=== PATIENT | female | born 1960 | race Two or more races ===

== ENCOUNTER 2024-02-05 00:35 | Inpatient (IN) | payer MEDICAID, OTHER ==
[2024-02-05] VITALS (7 sets, daily range): BP systolic 105–143; BP diastolic 48–63; PULSE 43–70; RESP 14–20; TEMP 98.2–98.3; O2SAT 95–98
[~2024-02-05] VITALS: Ht 162.6 cm; Wt 61.3 kg
[2024-02-05] MEDS: ONDANSETRON HCL 4 MG/2 ML VIAL IV ONE (01:15)
[2024-02-05 01:20] LABS: Basophils # (auto) 0 10 ^3/uL (0-0.2); Basophils % (auto) 0.4 % (0.0-2.0); Eosinophils # (auto) 0.2 10 ^3/uL (0-0.8); Eosinophils % (auto) 1.7 % (0.0-7.0); Hematocrit 43.3 % (36.0-46.0); Hemoglobin 14.7 g/dL (12.2-16.2); Lymphocytes # (auto) 3.8 10 ^3/uL (0.4-5.4); Lymphocytes % (auto) 42.2 % (10.0-50.0); Mean Corpuscular Hemoglobin 30.2 pg (28.0-32.0); Mean Corpuscular Hgb Conc. 33.9 g/dL (32.0-36.0); Mean Corpuscular Volume 89.2 fL (80.0-100.0); Monocytes # (auto) 0.5 10 ^3/uL (0-1.3); Neutrophils # (auto) 4.5 10 ^3/uL (1.6-8.6); Neutrophils % (auto) 49.7 % (37.0-80.0); Platelet Count (auto) 224 10^3/uL (140-450); Red Blood Cells 4.86 10^6/uL (4.0-5.20); Red Cell Distribution Width 14.4 % (11.8-14.3); White Blood Cell 9.1 10^3/uL (4.4-10.8)
[2024-02-05 01:33] LABS: Chloride 112 mmol/L (98-107); Potassium 2.9 mmol/L (3.5-5.1); Sodium 144 mmol/L (136-145)
[2024-02-05 01:34] LABS: Anion Gap 9 (5-15); Calcium 10.5 mg/dL (8.7-10.4); Carbon Dioxide 23 mmol/L (20-31)
[2024-02-05 01:39] LABS: BUN/Creatinine Ratio 14.5 (10.0-20.0); Blood Urea Nitrogen 10 mg/dL (9-23); Glucose 58 mg/dL (74-106)
[2024-02-05 01:56] LABS: Urine Bacteria FEW /hpf (None Seen); Urine Blood 2+ /uL (Negative); Urine Budding Yeast FEW /hpf (None Seen); Urine Clarity Turbid (Clear); Urine Mucus FEW (None Seen); Urine Protein, UAD 1+ (Negative); Urine Specific Gravity 1.023 (1.001-1.035); Urine Urobilinogen Normal (Negative); Urine WBC 246 /hpf (0 - 5)
[2024-02-05] MEDS: CEFEPIME 2GM/50ML NS 50 ML IV ONE (02:00)
[2024-02-05] MEDS: SODIUM CHLORIDE 0.9% 1,000 ML IV ONE (02:00)
[2024-02-05 02:03] LABS: Urine Color YELLOW (Yellow)
[2024-02-05] MEDS ORDERED: ONDANSETRON HCL 4 MG/2 ML VIAL IV PRN (03:45)
[2024-02-05] MEDS ORDERED: MORPHINE SULFATE INJ 2 MG/ml SYRG IV PRN (03:45)
[2024-02-05] MEDS ORDERED: NITROGLYCERIN 0.4 MG SL TAB SL PRN (03:45)
[2024-02-05] MEDS: POTASSIUM EFFERVESENT TAB 25 MEQ PO ONE (04:29)
[2024-02-05] MEDS: SODIUM CHLORIDE 0.9% 1,000 ML IV SCH (04:29)
[2024-02-05] MEDS ORDERED: DEXTROSE (50%) 50ML SYRG IV PRN (05:15)
[2024-02-05] MEDS: HYDROcodone-ACET 5/325MG TAB PO PRN (06:48)
[2024-02-05] MEDS: InsuLIN REG 1unit/0.01ml Soln (100units/ml) SC SCH (06:59)
[2024-02-05] MEDS: ACCU-CHEK COMFORT CURVE STRIP VI SCH (07:00)
[2024-02-05] MEDS ORDERED: POTASSIUM CHL 20MEQ/100ML 100 ML IV SCH (08:00)
[2024-02-05] MEDS: cefTRIAXone 1GM/50ML D5W 50 ML IV SCH (09:58)
[2024-02-05] MEDS: ENOXAPARIN SOD 40 MG/0.4 ML SYRINGE SC SCH (10:00)
[2024-02-05] MEDS: KETOROLAC TROMETH 30 MG/ML 1ML VIAL IV ONE (12:23)
[2024-02-05] MEDS: ACETAMINOPHEN 325 MG TAB PO ONE (12:23)
[2024-02-06] VITALS (7 sets, daily range): BP systolic 127–158; BP diastolic 44–57; PULSE 49–67; RESP 17–20; TEMP 97.8–98.5; O2SAT 95–97
[2024-02-06 06:03] LABS: Basophils # (auto) 0 10 ^3/uL (0-0.2); Basophils % (auto) 0.4 % (0.0-2.0); Eosinophils # (auto) 0.2 10 ^3/uL (0-0.8); Eosinophils % (auto) 3.4 % (0.0-7.0); Hematocrit 36.4 % (36.0-46.0); Hemoglobin 12.4 g/dL (12.2-16.2); Lymphocytes # (auto) 2.8 10 ^3/uL (0.4-5.4); Lymphocytes % (auto) 46.4 % (10.0-50.0); Mean Corpuscular Hemoglobin 30.5 pg (28.0-32.0); Mean Corpuscular Volume 89.5 fL (80.0-100.0); Monocytes # (auto) 0.3 10 ^3/uL (0-1.3); Monocytes % (auto) 5.6 % (0.0-12.0); Neutrophils # (auto) 2.6 10 ^3/uL (1.6-8.6); Neutrophils % (auto) 44.2 % (37.0-80.0); Platelet Count (auto) 179 10^3/uL (140-450); Red Blood Cells 4.06 10^6/uL (4.0-5.20); Red Cell Distribution Width 14.4 % (11.8-14.3)
[2024-02-06 06:22] LABS: Alanine Aminotransferase 19 U/L (7-40); Alkaline Phosphatase 60 U/L (46-116); Anion Gap 6 (5-15); BUN/Creatinine Ratio 8.5 (10.0-20.0); Blood Urea Nitrogen 6 mg/dL (9-23); Calcium 9.3 mg/dL (8.7-10.4); Carbon Dioxide 25 mmol/L (20-31); Chloride 111 mmol/L (98-107); Glucose 136 mg/dL (74-106); Potassium 4.5 mmol/L (3.5-5.1); Sodium 142 mmol/L (136-145)
[2024-02-06 06:23] LABS: Albumin 3.7 g/dL (3.2-4.8); Aspartate Aminotransferase 17 U/L (13-40); Bilirubin, Total 0.3 mg/dL (0.2-1.0); Total Protein 6.2 g/dL (5.7-8.2)
[2024-02-06] MEDS: amLODIPine BESYLATE 5 MG TAB PO STA (11:07)
[2024-02-06] MEDS: ACETAMINOPHEN 325 MG TAB PO PRN (19:53)
[2024-02-07 01:00] VITALS: BP 146/50; PULSE 56; RESP 18; TEMP 98.3; O2SAT 96
[2024-02-07 05:00] VITALS: BP 128/50; PULSE 55; RESP 18; TEMP 98.8; O2SAT 97
[2024-02-07 06:29] LABS: Anion Gap 10 (5-15); Basophils # (auto) 0 10 ^3/uL (0-0.2); Basophils % (auto) 0.7 % (0.0-2.0); Carbon Dioxide 23 mmol/L (20-31); Chloride 109 mmol/L (98-107); Eosinophils # (auto) 0.2 10 ^3/uL (0-0.8); Lymphocytes # (auto) 2.3 10 ^3/uL (0.4-5.4); Lymphocytes % (auto) 42.4 % (10.0-50.0); Mean Corpuscular Hemoglobin 30.6 pg (28.0-32.0); Mean Corpuscular Hgb Conc. 34.3 g/dL (32.0-36.0); Mean Corpuscular Volume 89.4 fL (80.0-100.0); Monocytes # (auto) 0.3 10 ^3/uL (0-1.3); Monocytes % (auto) 5.8 % (0.0-12.0); Neutrophils # (auto) 2.6 10 ^3/uL (1.6-8.6); Neutrophils % (auto) 47.1 % (37.0-80.0); Nucleated Red Blood Cells % 0.3 %; Platelet Count (auto) 186 10^3/uL (140-450); Potassium 3.9 mmol/L (3.5-5.1); Red Blood Cells 4.25 10^6/uL (4.0-5.20); Red Cell Distribution Width 14.1 % (11.8-14.3); Sodium 142 mmol/L (136-145); White Blood Cell 5.5 10^3/uL (4.4-10.8)
[2024-02-07 06:30] LABS: Calcium 9.2 mg/dL (8.7-10.4)
[2024-02-07 06:34] LABS: Glucose 130 mg/dL (74-106)
[2024-02-07 06:37] LABS: BUN/Creatinine Ratio 7.9 (10.0-20.0); Blood Urea Nitrogen < 5 mg/dL (9-23)
[2024-02-07 08:00] VITALS: PULSE 50
[2024-02-07 08:58] VITALS: BP 151/57; PULSE 52; RESP 16; TEMP 98.2; O2SAT 96
[2024-02-07] MEDS: amLODIPine BESYLATE 5 MG TAB PO SCH (10:00)
[2024-02-07] MEDS ORDERED: BLOO1KIT60 XX (11:44)
[2024-02-07] MEDS ORDERED: LANC-347 XX (11:44)
[2024-02-07] MEDS ORDERED: INSLANTI SC (11:44)
[2024-02-07] MEDS ORDERED: NITR-52 PO (11:46)
[2024-02-07 13:00] VITALS: BP 107/53; PULSE 54; RESP 16; TEMP 97.9; O2SAT 96
== END 2024-02-07 15:50 | disposition home or self-care (01) | DRG 463 ==
LOC: ER 00:35 → TELE 03:44 → TELE-EAST 06:10
PROVIDERS: ADMIT Internal Medicine Geriatric Medicine; ATTEND Internal Medicine Geriatric Medicine
DX: N30.00 Acute cystitis without hematuria (principal); G92.8 Other toxic encephalopathy; T68.XXXA Hypothermia, initial encounter; E11.649 Type 2 diabetes mellitus with hypoglycemia without coma; E87.6 Hypokalemia; E55.9 Vitamin D deficiency, unspecified; Z79.4 Long term (current) use of insulin; X31.XXXA Exposure to excessive natural cold, initial encounter; Z79.899 Other long term (current) drug therapy
CPT/HCPCS: 36415; 71045; 74176; 80048; 80053; 81001; 82306; 82607; 82962; 83036; 83605; 83735; 84132; 84443; 85025; 87040; 87086; 87088; 87186; 93005; 99291; G0378; J0692; J1815; J1885

== ENCOUNTER 2024-02-21 08:55 | Inpatient (IN) | payer MEDICAID ==
[~2024-02-21] VITALS: Ht 147.3 cm; Wt 65.5 kg
[~2024-02-21 08:55] MED LIST: BLOO1KIT60 XX; INSLANTI SC; LANC-347 XX; NITR-52 PO
--- NOTE | 2024-02-21 10:03 | ED.PDOC ---
History of Present Illness HPI Comments 64Y F with PMHx DM, HTN, and cholecystectomy presents to ED for chief complaint dysuria x1day with dizziness and headache. Pt denies chest pain and SOB. No known allergies. Chief Complaint: Dizziness Time Seen by MD: 09:30 Primary Care Provider: unknown Reviewed Notes: Medications, Allergies Allergies: Coded Allergies: NO KNOWN ALLERGIES (Unverified , 02/05/24) Home Meds Active Scripts Nitrofurantoin (Nitrofurantoin) 100 Mg Cap, 100 MG PO BID for 5 Days, #10 CAP Prov:EFRAIN LOUIE RESIDENT 02/07/24 Insulin Glargine (Lantus) 100 Unit/Ml Inj, 15 UNIT SC QPM for 30 Days, #30 INJ Prov:EFRAIN LOUIE 02/07/24 Lancets (Freestyle Lancets) Lancets Mis, APPLIC XX BID, #60 60 LANCETS, 2 LANCETS EACH DAY Prov:EFRAIN LOUIE 02/07/24 Blood Glucose Monitoring Suppl (D-Care Glucometer Kit/Glu W/Device) 1 Kit Kit, KIT XX DAILY PRN, #1 1 Refill CHECK GLUCOSE TWICE A DAY Prov:EFRAIN LOUIE 02/07/24 Information Source: Patient Mode of Arrival: Wheelchair Severity: Mild Timing: Hours Duration: Since onset Past Medical History PAST MEDICAL HISTORY: DM, HTN Surgical History: Cholecystectomy 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 Family History Family History: Reviewed,noncontributory to illness Social History Smoker: Non-Smoker Alcohol: Denies ETOH Use Drugs: Denies Drug Use Lives In: Home Constitutional: denies: chills, diaphoresis, fatigue, fever, malaise, sweats, weakness, others EENTM: denies: blurred vision, double vision, ear bleeding, ear discharge, ear drainage, ear pain, ear ringing, eye pain, eye redness, hearing loss, mouth pain, mouth swelling, nasal discharge, nose bleeding, nose congestion, nose pain, photophobia, tearing, throat pain, throat swelling, voice changes, others Respiratory: denies: cough, hemoptysis, orthopnea, SOB at rest, shortness of breath, SOB with excertion, stridor, wheezing, others Cardiovascular: denies: chest pain, dizzy spells, diaphoresis, Dyspnea on exertion, edema, irregular heart beat, left arm pain, lightheadedness, palpitations, PND, syncope, others Gastrointestinal: denies: abdomen distended, abdominal pain, blood streaked bowels, constipated, diarrhea, dysphagia, difficulty swallowing, hematemesis, melena, nausea, poor appetite, poor fluid intake, rectal bleeding, rectal pain, vomiting, others Genitourinary: reports: dysuria; denies: abnormal vagina bleeding, burning, dyspareunia, flank pain, frequency, hematuria, incontinence, pain, , vagina discharge, urgency, others Neurological: reports: dizziness, headache; denies: fainting, left sided numbness, left sided weakness, numbness, paresthesia, pre-existing deficit, right sided numbness, right sided weakness, seizure, speech problems, tingling, tremors, weakness, others Musculoskeletal: denies: back pain, gout, joint pain, joint swelling, muscle pain, muscle stiffness, neck pain, others Integumetry: denies: bruises, change in color, change in hair/nails, dryness, laceration, lesions, lumps, rash, wounds, others Allergic/Immunocompromised: denies: Difficulty Healing, Frequent Infections, Hives, Itching, others Hematologic/Lymphatic: denies: anemia, blood clots, easy bleeding, easy bruising, swollen glands, others Endocrine: denies: excessive hunger, excessive sweating, excessive thirst, excessive urination, flushing, intolerance to cold, intolerance to heat, unexplained weight gain, unexplained weight loss, others Psychiatric: denies: anxiety, bipolar disorder, depression, hopeless, panic disorder, schizophrenia, sleepless, suicidal, others All Other Systems: Reviewed and Negative Physical Exam General Appearance: Moderate Distress, Normal HEENT: Normal ENT Inspection, Pharynx Normal, TMs Normal Neck: Full Range of Motion, Non-Tender, Normal, Normal Inspection Respiratory: Chest Non-Tender, Lungs Clear, No Accessory Muscle Use, No Respiratory Distress, Normal Breath Sounds Cardiovascular: No Edema, No JVD, No Murmur, No Gallop, Normal Peripheral Pulses, Regular Rate/Rhythm Breast Exam: Deferred Gastrointestinal: No Organomegaly, Non Tender, No Pulsatile Mass, Normal Bowel Sounds, Soft Genitalia: Deferred Pelvic: Deferred Rectal: Deferred Extremities: No calf tenderness, Normal capillary refill, Normal inspection, Normal range of motion, Non-tender, No pedal edema Musculoskeletal : Apperance: Normal Neurologic: Alert, top distribution executive II-XII nml as Tested, No Motor Deficits, Normal Affect, Normal Mood, No Sensory Deficits Cerebellar Function: NOT DONE Reflexes: NOT DONE Skin: Dry, Normal Color, Warm Peripheral Pulses: 3+ Radial (R), 3+ Radial (L) Lymphatic: No Adenopathy Was a procedure done? Was a procedure done?: No Differential Dx Considerations may include: Autonomic disorder Electrolyte imbalance X-Ray, Labs, Meds, VS Vital Signs Date Time Temp Pulse Resp B/P (MAP) Pulse Ox O2 Delivery O2 Flow Rate FiO2 02/21/24 10:33 52 16 96 Room Air 02/21/24 10:33 97.8 52 16 149/47 (81) 96 97.8 02/21/24 09:14 51 02/21/24 09:14 98.2 59 19 152/62 (92) 99 Lab Test 02/21/24 10:29 02/21/24 09:52 Range/Units Urine Color Colorless Yellow Urine Clarity Clear Clear Urine pH 6.0 5.0-9.0 Urine Specific [place] 1.013 1.001-1.035 Urine Protein Negative Negative Urine Ketones Negative Negative Urine Blood Negative Negative /uL Urine Nitrite Negative Negative Urine Bilirubin Negative Negative Urine Urobilinogen Normal Negative mg/dL Urine Leukocyte Esterase 3+ Negative /uL Urine RBC 3 0 - 4 /hpf Urine WBC 14 0 - 5 /hpf Urine Squamous Epithelial Cells Few <5 /hpf Urine Bacteria None seen None Seen /hpf Urine Glucose 2+ H Normal mg/dL White Blood Count 5.4 4.4-10.8 10^3/uL Red Blood Count 4.38 4.0-5.20 10^6/uL Hemoglobin 13.1 12.2-16.2 g/dL Hematocrit 38.9 36.0-46.0 % Mean Corpuscular Volume 88.8 80.0-100.0 fL Mean Corpuscular Hemoglobin 30.0 28.0-32.0 pg Mean Corpuscular Hemoglobin Concent 33.8 32.0-36.0 g/dL Red Cell Distribution Width 14.3 11.8-14.3 % Platelet Count 221 140-450 10^3/uL Mean Platelet Volume 7.8 6.9-10.8 fL Neutrophils (%) (Auto) 44.6 37.0-80.0 % Lymphocytes (%) (Auto) 45.5 10.0-50.0 % Monocytes (%) (Auto) 6.7 0.0-12.0 % Eosinophils (%) (Auto) 2.6 0.0-7.0 % Basophils (%) (Auto) 0.6 0.0-2.0 % Neutrophils # (Auto) 2.4 1.6-8.6 10 ^3/uL Lymphocytes # (Auto) 2.5 0.4-5.4 10 ^3/uL Monocytes # (Auto) 0.4 0-1.3 10 ^3/uL Eosinophils # (Auto) 0.1 0-0.8 10 ^3/uL Basophils # (Auto) 0 0-0.2 10 ^3/uL Nucleated Red Blood Cells 0.0 % Sodium Level 142 136-145 mmol/L Potassium Level 4.0 3.5-5.1 mmol/L Chloride Level 110 H 98-107 mmol/L Carbon Dioxide Level 25 20-31 mmol/L Anion Gap 7 5-15 Blood Urea Nitrogen 10 9-23 mg/dL Creatinine 0.91 0.550-1.02 mg/dL Glomerular Filtration Rate Calc 70 >90 mL/min BUN/Creatinine Ratio 11.0 10.0-20.0 Serum Glucose 231 H 74-106 mg/dL Calcium Level 9.8 8.7-10.4 mg/dL Troponin I High Sensitivity 4 </=34 ng/L [place] [id number] Ph: [phone] DIAGNOSTIC IMAGING Diagnostic Imaging Report : [id number] Signed PATIENT: ALEX EISENBERG MA CONCEPCIOACCT: [id number] UNIT: [id number] : 1960 LOC: ER ROOM / BED: / AGE / SEX: 64 / F ADM STATUS: REG ER SERVICE 1043 ORDERING PHYSICIAN: IRA HOUSTON MD PROCEDURE(s): HWOCT - HEAD WITHOUT CONTRAST REASON: dizzy ORDER NUMBER(s): [id number], ACCESSION NUMBER(s): [id number] EXAM: CT HEAD WITHOUT CONTRAST INDICATION: dizzy TECHNIQUE: CT of the head without intravenous contrast. Radiation dose : Head: CT Dose: CTDI volume is 54 mGy. Dose-length product is 956.35 mGy*cm The dose indicators for CT are the volume computed tomography (CT) dose index (CTDIvol) and the dose length product (DLP), and are measured in units of mGy and mGy-cm, respectively. These indicators are not patient dose, but values generated from the CT scanner acquisition factors. The report includes radiation exposure data for exposures received during this examination. COMPARISON: None FINDINGS: There is no evidence of acute intracranial hemorrhage, extra-axial collection, mass effect, midline shift, herniation or hydrocephalus. There is a calcification in the left high frontal cortex. The ventricles, sulci and cisterns are age appropriate. The moses-white differentiation is intact. The visualized paranasal sinuses and mastoid air cells are clear. The surrounding soft tissues and osseous structures are unremarkable. IMPRESSION: 1. No acute intracranial abnormality. Radiation optimization: All CT scans at this facility use at least one of these dose optimization techniques: Automated exposure control mA and/or kV adjustment per patient size (includes targeted exams where dose is matched to clinical indication) or iterative reconstruction. HS:Y ATED BY: NIKOLAI MALAGON MD DICTATED DATE/TIME: 02/21/24 111 SIGNED BY: NIKOLAI MALAGON MD SIGNED DATE/TIME: 02/21/24 111 CC: Patient alert. Complaining of dysuria headache dizziness. Vitals stable. Answering all questions. Blood sugar elevated. Establish intravenous access. Was given fluids. CT scan of the head. WBC within normal limits. Hemoglobin within normal limits. Blood pressure elevated. Was given clonidine. EKG reviewed does not show any acute changes. Reviewed her history. Explained to the family. Continue scow hand. Time of 1ST Reevaluation: 10:00 Reevaluation 1ST: Unchanged Patient Education/Counseling: Diagnosis, Treatment Family Education/Counseling: Diagnosis, Treatment Departure 1 Departure Time of Disposition: 10:42 Impression: Primary Impression: Autonomic disorder Additional Impressions: Hyperglycemia HTN (hypertension) Qualified Codes: I10 - Essential (primary) hypertension Disposition: ADMITTED INPATIENT Admit to: Med Surg Condition: Guarded Critical Care Note Critical Care Time?: No Stability Stability form required: No Heart Score Heart Score: Heart Score Response (Comments) Value History Slightly Suspicious 0 EKG Normal 0 Age >65 2 Risk Factors >3 or Hx ASHD 2 Troponin Normal limit 0 Total 4 I personally scribed for IRA HOUSTON MD ([email or web address]) on 02/21/24 at 10:03. Electronically submitted by Aniya Lockwood ([employer]). I personally scribed for IRA HOUSTON MD ([email or web address]) on 02/21/24 at 11:24. Electronically submitted by Aniya Lockwood ([employer]). IRA HOUSTON MD Feb 21, 2024 10:03
[2024-02-21 10:17] LABS: Basophils # (auto) 0 10 ^3/uL (0-0.2); Basophils % (auto) 0.6 % (0.0-2.0); Eosinophils # (auto) 0.1 10 ^3/uL (0-0.8); Eosinophils % (auto) 2.6 % (0.0-7.0); Hematocrit 38.9 % (36.0-46.0); Hemoglobin 13.1 g/dL (12.2-16.2); Lymphocytes # (auto) 2.5 10 ^3/uL (0.4-5.4); Lymphocytes % (auto) 45.5 % (10.0-50.0); Mean Corpuscular Hgb Conc. 33.8 g/dL (32.0-36.0); Mean Corpuscular Volume 88.8 fL (80.0-100.0); Monocytes # (auto) 0.4 10 ^3/uL (0-1.3); Monocytes % (auto) 6.7 % (0.0-12.0); Neutrophils # (auto) 2.4 10 ^3/uL (1.6-8.6); Neutrophils % (auto) 44.6 % (37.0-80.0); Platelet Count (auto) 221 10^3/uL (140-450); Red Blood Cells 4.38 10^6/uL (4.0-5.20); Red Cell Distribution Width 14.3 % (11.8-14.3); White Blood Cell 5.4 10^3/uL (4.4-10.8)
[2024-02-21 10:24] LABS: Chloride 110 mmol/L (98-107); Sodium 142 mmol/L (136-145)
[2024-02-21 10:25] LABS: Anion Gap 7 (5-15); Carbon Dioxide 25 mmol/L (20-31)
[2024-02-21 10:26] LABS: Calcium 9.8 mg/dL (8.7-10.4)
[2024-02-21 10:31] LABS: Blood Urea Nitrogen 10 mg/dL (9-23); Glucose 231 mg/dL (74-106)
[2024-02-21 10:54] LABS: Urine Bacteria None Seen /hpf (None Seen)
[2024-02-21 11:11] LABS: Urine Blood Negative /uL (Negative); Urine Clarity Clear (Clear); Urine Color Colorless (Yellow); Urine Protein, UAD Negative (Negative); Urine Specific Gravity 1.013 (1.001-1.035); Urine Urobilinogen Normal (Negative); Urine WBC 14 /hpf (0 - 5)
[2024-02-21] MEDS: cloNIDine HCL 0.1 MG TAB PO ONE (11:13)
[2024-02-21] MEDS: SODIUM CHLORIDE 0.9% 1,000 ML IV ONE (11:13)
--- NOTE | 2024-02-21 11:18 | DVH ---
EXAM: CT HEAD WITHOUT CONTRAST INDICATION: dizzy TECHNIQUE: CT of the head without intravenous contrast. Radiation dose : Head: CT Dose: CTDI volume is 54 mGy. Dose-length product is 956.35 mGy*cm The dose indicators for CT are the volume computed tomography (CT) dose index (CTDIvol) and the dose length product (DLP), and are measured in units of mGy and mGy-cm, respectively. These indicators are not patient dose, but values generated from the CT scanner acquisition factors. The report includes radiation exposure data for exposures received during this examination. COMPARISON: None FINDINGS: There is no evidence of acute intracranial hemorrhage, extra-axial collection, mass effect, midline s hift, herniation or hydrocephalus. There is a calcification in the left high frontal cortex. The ventricles, sulci and cisterns are age appropriate. The moses-white differentiation is intact. The visualized paranasal sinuses and mastoid air cells are clear. The surrounding soft tissues and osseous structures are unremarkable. IMPRESSION: 1. No acute intracranial abnormality. Radiation optimization: All CT scans at this facility use at least one of these dose optimization cruz hniques: Automated exposure control mA and/or kV adjustment per patient size (includes targeted exams where dose is matched to clinical indication) or iterative reconstruction. HS:Y
[2024-02-21 12:10] VITALS: PULSE 52; RESP 16; O2SAT 98
[2024-02-21 13:00] VITALS: BP 137/47; PULSE 48; RESP 16; TEMP 97.8; O2SAT 98
[2024-02-21] MEDS ORDERED: cloNIDine HCL 0.1 MG TAB PO PRN (14:00)
[2024-02-21] MEDS ORDERED: ACETAMINOPHEN 325 MG TAB PO PRN (14:00)
[2024-02-21] MEDS ORDERED: HYDROcodone-ACET 5/325MG TAB PO PRN (14:00)
[2024-02-21] MEDS ORDERED: DEXTROSE (50%) 50ML SYRG IV PRN (14:00)
[2024-02-21] MEDS ORDERED: DOCUSATE SOD 100 MG CAP PO PRN (14:00)
[2024-02-21] MEDS ORDERED: ONDANSETRON HCL 4 MG/2 ML VIAL IV PRN (14:00)
[2024-02-21 15:00] VITALS: BP 134/54; PULSE 52; RESP 17; TEMP 98.1; O2SAT 97
[2024-02-21] MEDS: cefTRIAXone 1GM/50ML D5W 50 ML IV ONE (16:11)
[2024-02-21] MEDS: SODIUM CHLOR 0.9% PF (SALINE LOCK) 10ML VIAL/SYR IV SCH (16:12)
--- NOTE | 2024-02-21 16:33 | DVHHP2 ---
History of Present Illness Reason for Visit: Dizziness History of Present Illness The patient is a 64-year-old female with past medical history of diabetes mellitus and hypertension who presented to [facility] ED with complaint of dysuria. Patient reports symptoms progressively get worse with dizziness, headache, getting worse today that prompted this visit. Patient was seen and evaluated in the ED, laboratory data shows WBC 5.4, platelets 221, sodium 142, potassium 4.0, BUN 10, creatinine 0.91, glucose 231, troponin four, blood pressure 145/45, heart rate 52, temperature 97.9 F, O2 saturation 99% on room air. Head CT showed no acute intracranial abnormality. Urinalysis positive for urinary tract infection. Patient was started on IV antibiotic regimen Rocephin, please see medication orders section in the computer. On my assessment, patient denied chest pain, no headache, no dizziness, no diaphoresis, no shortness of breath, no abdominal pain, no nausea, no vomiting, no fever, no chills. Patient was admitted for further evaluation and medical management. Past Medical History DM, HTN Past Surgical History Cholecystectomy Family History Reviewed, noncontributory to the management of this case. Past Social History The patient lives at home, denies smoking, alcohol or illicit drugs abuse. Review of Systems Constitutional: No: Fever, Chills, Sweats, Weakness, Malaise, Other Eyes: No: Pain, Vision change, Conjunctivae inflammation, Eyelid inflammation, Other, Redness ENT: No: Ear pain, Ear discharge, Nose pain, Nose discharge, Nose congestion, Mouth pain, Mouth swelling, Throat pain, Throat swelling, Other Respiratory: No: Cough, Dry, Shortness of breath, SOB with excertion, Wheezing, Hemoptysis, Pleuritic Pain, Sputum, Wheezing, Other Gastrointestinal: No: Nausea, Vomiting, Abdominal Pain, Diarrhea, Constipation, Melena, Hematochezia, Other Genitourinary: Dysuria; No Frequency, No Incontinence, No Hematuria, No Retention, No Other Musculoskeletal: No: other, neck pain, shoulder pain, arm pain, back pain, hand pain, leg pain, foot pain Skin: No: Rash, Lesions, Jaundice, Bruising, Other Neurological: Other (Dizziness, headache.); No: Weakness, Numbness, Incoordina tion, Change in speech, Confusion, Seizures Allergies: Coded Allergies: NO KNOWN ALLERGIES (Unverified , 02/05/24) Medications Current Medications Medications Dose Ordered Sig/Michael Route Start Time Stop Time Status Last Admin Dose Admin Ceftriaxone Sodium 50 ml @ 100 mls/hr DAILY@09 IV 02/22/24 09:00 Clonidine HCl 0.1 mg Q4HP PRN PO 02/21/24 14:00 Diagnostic Test (Pha) 1 strip ACHS 02/21/24 17:00 Insulin Human Regular HS SC 02/21/24 22:00 Insulin Human Regular AC SC 02/21/24 17:00 Dextrose 50 ml UD PRN IV 02/21/24 14:00 Sodium Chloride 10 ml Q8HR IV 02/21/24 14:00 02/21/24 16:12 10 ML Acetaminophen/ Hydrocodone Bitart 1 tab Q4HP PRN PO 02/21/24 14:00 Ondansetron HCl 4 mg Q4HP PRN IV 02/21/24 14:00 Docusate Sodium 100 mg BIDPRN PRN PO 02/21/24 14:00 Acetaminophen 650 mg Q6HP PRN PO 02/21/24 14:00 Exam Vital Signs Vital Signs Date Time Temp Pulse Resp B/P (MAP) Pulse Ox O2 Delivery O2 Flow Rate FiO2 02/21/24 13:00 97.8 48 16 137/47 (77) 98 97.8 02/21/24 12:10 Room Air* 0 21 General Appearance: Alert, Oriented X3, Cooperative, No acute distress HEENT: Atraumatic, PERRLA, EOMI, Mucous membr. moist/pink Respiratory: Clear to auscultation, Normal air movement Cardiovascular: Regular rate, Normal S1, Normal S2, No murmurs Abdominal: Normal bowel sounds, Soft, No tenderness, No hepatospenomegaly, No masses Extremities: No clubbing, No cyanosis, No edema, Normal pulses, No tenderness/swelling Skin: No rashes, No breakdown, No significant lesion Neuro: Normal gait, Normal speech, Strength at 5/5 X4 ext, Normal tone, Sen sation intact, Cranial nerves 3-12 NL, Reflexes 2+ Psych/Mental Status: Mental status NL, Mood NL Labs/Xrays Labs Test 02/21/24 10:29 02/21/24 09:52 Range/Units Urine Color Colorless Yellow Urine Clarity Clear Clear Urine pH 6.0 5.0-9.0 Urine Specific [place] 1.013 1.001-1.035 Urine Protein Negative Negative Urine Ketones Negative Negative Urine Blood Negative Negative /uL Urine Nitrite Negative Negative Urine Bilirubin Negative Negative Urine Urobilinogen Normal Negative mg/dL Urine Leukocyte Esterase 3+ Negative /uL Urine RBC 3 0 - 4 /hpf Urine WBC 14 0 - 5 /hpf Urine Squamous Epithelial Cells Few <5 /hpf Urine Bacteria None seen None Seen /hpf Urine Glucose 2+ H Normal mg/dL White Blood Count 5.4 4.4-10.8 10^3/uL Red Blood Count 4.38 4.0-5.20 10^6/uL Hemoglobin 13.1 12.2-16.2 g/dL Hematocrit 38.9 36.0-46.0 % Mean Corpuscular Volume 88.8 80.0-100.0 fL Mean Corpuscular Hemoglobin 30.0 28.0-32.0 pg Mean Corpuscular Hemoglobin Concent 33.8 32.0-36.0 g/dL Red Cell Distribution Width 14.3 11.8-14.3 % Platelet Count 221 140-450 10^3/uL Mean Platelet Volume 7.8 6.9-10.8 fL Neutrophils (%) (Auto) 44.6 37.0-80.0 % Lymphocytes (%) (Auto) 45.5 10.0-50.0 % Monocytes (%) (Auto) 6.7 0.0-12.0 % Eosinophils (%) (Auto) 2.6 0.0-7.0 % Basophils (%) (Auto) 0.6 0.0-2.0 % Neutrophils # (Auto) 2.4 1.6-8.6 10 ^3/uL Lymphocytes # (Auto) 2.5 0.4-5.4 10 ^3/uL Monocytes # (Auto) 0.4 0-1.3 10 ^3/uL Eosinophils # (Auto) 0.1 0-0.8 10 ^3/uL Basophils # (Auto) 0 0-0.2 10 ^3/uL Nucleated Red Blood Cells 0.0 % Sodium Level 142 136-145 mmol/L Potassium Level 4.0 3.5-5.1 mmol/L Chloride Level 110 H 98-107 mmol/L Carbon Dioxide Level 25 20-31 mmol/L Anion Gap 7 5-15 Blood Urea Nitrogen 10 9-23 mg/dL Creatinine 0.91 0.550-1.02 mg/dL Glomerular Filtration Rate Calc 70 >90 mL/min BUN/Creatinine Ratio 11.0 10.0-20.0 Serum Glucose 231 H 74-106 mg/dL Calcium Level 9.8 8.7-10.4 mg/dL Troponin I High Sensitivity 4 </=34 ng/L PATIENT: ALEX EISENBERG MA CONCEPCIOACCT: [id number] UNIT: [id number] : 1960 LOC: ER ROOM / BED: / AGE / SEX: 64 / F ADM STATUS: REG ER SERVICE 1043 ORDERING PHYSICIAN: IRA HOUSTON MD PROCEDURE(s): HWOCT - HEAD WITHOUT CONTRAST REASON: dizzy ORDER NUMBER(s): [id number], ACCESSION NUMBER(s): [id number] EXAM: CT HEAD WITHOUT CONTRAST INDICATION: dizzy TECHNIQUE: CT of the head without intravenous contrast. Radiation dose : Head: CT Dose: CTDI volume is 54 mGy. Dose-length product is 956.35 mGy*cm The dose indicators for CT are the volume computed tomography (CT) dose index (CTDIvol) and the dose length product (DLP), and are measured in units of mGy and mGy-cm, respectively. These indicators are not patient dose, but values generated from the CT scanner acquisition factors. The report includes radiation exposure data for exposures received during this examination. COMPARISON: None FINDINGS: There is no evidence of acute intracranial hemorrhage, extra-axial collection, mass effect, midline shift, herniation or hydrocephalus. There is a calcification in the left high frontal cortex. The ventricles, sulci and cisterns are age appropriate. The moses-white differentiation is intact. The visualized paranasal sinuses and mastoid air cells are clear. The surrounding soft tissues and osseous structures are unremarkable. IMPRESSION: 1. No acute intracranial abnormality. Assessment/Plan Assessment/Plan Dizziness HTN (hypertension) Urinary tract infection Diabetes mellitus with hyperglycemia Plan 1. Admit to telemetry unit 2. Breathing treatment 3. Pain control management 4. IV antibiotic management 5. Management of fluids and electrolytes 6. Consultation for hospitalist 7. Diagnostic test head CT 8. DVT prophylaxis on SCDs 9. Repeat labs CBC, CMP in a.m. 10. Home medication reviewed and reconciled 11. Continue with current medical management 12. Treatment plan discussed with patient and RN. Patient verbalized understanding. Plan discussed with: Patient, Other (RN) My Orders Orders - SANTOSH TREVINO DNP Procedure Category Date Status Time Urine Bacterial NA 02/21/24 In Process Culture 13:52 Ceftriaxone 1gm/50ml PHA 02/22/24 In Process D5w (Rocephin) 09:00 Clonidine Hcl Tablet PHA 02/21/24 In Process (Catapres Tablet) 14:00 Consistent DIET 02/21/24 Transmitted Carb(Ccho)Diabetes Dinner Glucose Blood PHA 02/21/24 In Process (Accu-Chek Comfort 17:00 Insulin R (Human) PHA 02/21/24 In Process (Insulin R) 22:00 Insulin R (Human) PHA 02/21/24 In Process (Insulin R) 17:00 Dextrose 50% Syringe PHA 02/21/24 In Process 14:00 Allergies ROSY 02/21/24 In Process 13:52 Code Status CODE 02/21/24 Transmitted 13:52 Sodium Chloride Lock PHA 02/21/24 In Process (Saline Lock Ns) 14:00 Oxygen Per Hour RT 02/21/24 Transmitted 13:52 Hydrocodone-Acet PHA 02/21/24 In Process 5/325mg Tab (Cary 14:00 Ondansetron Hcl PHA 02/21/24 In Process (Zofran) 14:00 Docusate Sodium PHA 02/21/24 In Process Capsule (Colace 14:00 Complete Blood Count LAB 02/22/24 Verified 04:00 Comprehensive LAB 02/22/24 Verified Metabolic Panel 04:00 Condition: Serious ROSY 02/21/24 In Process 13:52 Acetaminophen Tablet PHA 02/21/24 In Process (Tylenol Tablet) 14:00 Bedrest With Bathroom ROSY 02/21/24 In Process Privileg 13:52 Sequential ROSY 02/21/24 In Process Compression Device Problem List: (1) Dizziness (2) Urinary tract infection (3) HTN (hypertension) (4) Diabetes mellitus with hyperglycemia Date of Service: Feb 21, 2024 Billing Provider: SANTOSH TREVINO DNP Common Visit Codes: 12303-SCZHYAU INP/OBS CARE (HIGH) SANTOSH TREVINO DNP Feb 21, 2024 16:33
[2024-02-21] MEDS ORDERED: NITROGLYCERIN 0.4 MG SL TAB SL PRN (16:45)
[2024-02-21] MEDS ORDERED: MORPHINE SULFATE INJ 2 MG/ml SYRG IV PRN (16:45)
[2024-02-21 17:00] VITALS: BP 156/45; PULSE 64; RESP 17; TEMP 98.3; O2SAT 95
[2024-02-21] MEDS: ACCU-CHEK COMFORT CURVE STRIP VI SCH (17:00)
[2024-02-21] MEDS: InsuLIN REG 1unit/0.01ml Soln (100units/ml) SC SCH ×2 (17:00→23:07)
[2024-02-21 21:50] VITALS: BP 146/45; PULSE 72; RESP 17; TEMP 98.2; O2SAT 96
[2024-02-22 01:00] VITALS: BP 110/45; PULSE 69; RESP 17; TEMP 98.2; O2SAT 94
[2024-02-22 04:38] LABS: Basophils # (auto) 0 10 ^3/uL (0-0.2); Basophils % (auto) 0.7 % (0.0-2.0); Eosinophils # (auto) 0.2 10 ^3/uL (0-0.8); Eosinophils % (auto) 3.1 % (0.0-7.0); Hematocrit 39.7 % (36.0-46.0); Hemoglobin 13.4 g/dL (12.2-16.2); Lymphocytes # (auto) 3.2 10 ^3/uL (0.4-5.4); Lymphocytes % (auto) 46.1 % (10.0-50.0); Mean Corpuscular Hemoglobin 30.2 pg (28.0-32.0); Mean Corpuscular Hgb Conc. 33.7 g/dL (32.0-36.0); Mean Corpuscular Volume 89.4 fL (80.0-100.0); Monocytes # (auto) 0.5 10 ^3/uL (0-1.3); Monocytes % (auto) 6.7 % (0.0-12.0); Neutrophils % (auto) 43.4 % (37.0-80.0); Nucleated Red Blood Cells % 0.2 %; Platelet Count (auto) 245 10^3/uL (140-450); Red Blood Cells 4.44 10^6/uL (4.0-5.20); Red Cell Distribution Width 14.4 % (11.8-14.3)
[2024-02-22 04:55] LABS: Alanine Aminotransferase 23 U/L (7-40); Albumin 4.5 g/dL (3.2-4.8); Alkaline Phosphatase 62 U/L (46-116); Anion Gap 7 (5-15); Aspartate Aminotransferase 19 U/L (13-40); BUN/Creatinine Ratio 16.7 (10.0-20.0); Blood Urea Nitrogen 11 mg/dL (9-23); Calcium 10.3 mg/dL (8.7-10.4); Carbon Dioxide 24 mmol/L (20-31); Chloride 110 mmol/L (98-107); Glucose 147 mg/dL (74-106); Potassium 3.8 mmol/L (3.5-5.1); Sodium 141 mmol/L (136-145)
[2024-02-22 04:56] LABS: Bilirubin, Total 0.3 mg/dL (0.2-1.0); Total Protein 7.4 g/dL (5.7-8.2)
[2024-02-22 05:00] VITALS: BP 134/48; PULSE 59; RESP 17; TEMP 98.1; O2SAT 98
[2024-02-22 08:31] VITALS: BP 114/45; PULSE 51; RESP 14; TEMP 97.8; O2SAT 96
[2024-02-22] MEDS: cefTRIAXone 1GM/50ML D5W 50 ML IV SCH (09:08)
--- NOTE | 2024-02-22 09:51 | ECG ---
[facility] Test Date: 2024-02-21 Test Time: 09:14:45 Pat Name: ROSIE RINGepartment: ER [facility] Gender: F Diamond [employer] Maker: [place] : 1960 Requested By: EMERGENCY EMERGENCY Order Number: [id number] Reading MD: Measurements Intervals [place] Rate: 51 P: 48 FL: 142 QRS: 94 QRSD: 89 T: 50 QT: 427 QTc: 394 Interpretive Statements Sinus rhythm Right axis deviation Low voltage, precordial leads Please click the below link to view image of tracing.
--- NOTE | 2024-02-22 12:03 | DVHPN2 ---
Subjective This 58-year-old female admitted for dizziness. Found to have UTI, symptomatic. Patient was seen by me during rounds Started on IV antibiotics, HINTS exam negative, admission more for UTI Reviewed: H&P Changes from previous H/P or p: No Changes Eyes: No Pain, No Vision change, No Conjunctivae inflammation, No Eyelid inflammation, No Other, No Redness ENT: No Ear pain, No Ear discharge, No Nose pain, No Nose discharge, No Nose congestion, No Mouth pain, No Mouth swelling, No Throat pain, No Throat swelling, No Other Respiratory: No Cough, No Dry, No Shortness of breath, No SOB with excertion, No Wheezing, No Hemoptysis, No Pleuritic Pain, No Sputum, No Other Gastrointestinal: No Nausea, No Vomiting, No Abdominal Pain, No Diarrhea, No Constipation, No Melena, No Hematochezia, No Other Genitourinary: Dysuria; No Frequency, No Incontinence, No Hematuria, No Retention, No Other Musculoskeletal: No other, No neck pain, No shoulder pain, No arm pain, No back pain, No hand pain, No leg pain, No foot pain Skin: No Rash, No Lesions, No Jaundice, No Bruising, No Other Objective Vitals Vital Signs Date Time Temp Pulse Resp B/P (MAP) Pulse Ox O2 Delivery O2 Flow Rate FiO2 02/22/24 08:31 97.8 51 14 114/45 (68) 96 97.8 02/21/24 21:46 Room Air* 0 21 Exam Alert, oriented x2 PERRLA No JVD Clear breath sounds bilaterally S1-S2 regular rate and rhythm no murmur Suprapubic tenderness, no flank tenderness Equal strength bilaterally on upper and lower extremities No lower extremity edema Medications Current Medications Medications Dose Ordered Sig/Michael Route Start Time Stop Time Status Last Admin Dose Admin Ceftriaxone Sodium 50 ml @ 100 mls/hr DAILY@09 IV 02/22/24 09:00 02/22/24 09:08 100 MLS/HR Clonidine HCl 0.1 mg Q4HP PRN PO 02/21/24 14:00 Diagnostic Test (Pha) 1 strip ACHS 02/21/24 17:00 02/22/24 11:45 1 STRIP Insulin Human Regular HS SC 02/21/24 22:00 02/21/24 23:07 6 UNITS Insulin Human Regular AC SC 02/21/24 17:00 02/22/24 11:45 6 UNITS Dextrose 50 ml UD PRN IV 02/21/24 14:00 Sodium Chloride 10 ml Q8HR IV 02/21/24 14:00 02/22/24 06:29 10 ML Acetaminophen/ Hydrocodone Bitart 1 tab Q4HP PRN PO 02/21/24 14:00 Ondansetron HCl 4 mg Q4HP PRN IV 02/21/24 14:00 Docusate Sodium 100 mg BIDPRN PRN PO 02/21/24 14:00 Acetaminophen 650 mg Q6HP PRN PO 02/21/24 14:00 Nitroglycerin 0.4 mg Q5MINP PRN SL 02/21/24 16:45 Morphine Sulfate 2 mg Q30M PRN IV 02/21/24 16:45 Laboratory Results Laboratory Tests 02/22/24 03:45 Chemistry Test 02/22/24 03:45 Albumin 4.5 g/dL (3.2-4.8) Calcium Level 10.3 mg/dL (8.7-10.4) Total Protein 7.4 g/dL (5.7-8.2) LFT Test 02/22/24 03:45 Alanine Aminotransferase (ALT) 23 U/L (7-40) Alkaline Phosphatase 62 U/L (46-116) Aspartate Amino Transferase (AST) 19 U/L (13-40) Total Bilirubin 0.3 mg/dL (0.2-1.0) Urinalysis Test 02/21/24 10:29 Urine Color Colorless (Yellow) Urine Clarity Clear (Clear) Urine pH 6.0 (5.0-9.0) Urine Specific [place] 1.013 (1.001-1.035) Urine Protein Negative (Negative) Urine Ketones Negative (Negative) Urine Blood Negative /uL (Negative) Urine Nitrite Negative (Negative) Urine Bilirubin Negative (Negative) Urine Urobilinogen Normal mg/dL (Negative) Urine Leukocyte Esterase 3+ /uL (Negative) Urine RBC 3 /hpf (0 - 4) Urine WBC 14 /hpf (0 - 5) Urine Squamous Epithelial Cells Few /hpf (<5) Urine Bacteria None seen /hpf (None Seen) Urine Glucose 2+ mg/dL (Normal) H Labs and/or images reviewed: Labs reviewed by me, Image(s) reviewed by me Assessment/Plan Assessment/Plan Symptomatic UTI Confusion secondary to above Dizziness secondary to above Insulin-dependent diabetes Hypertension Continue with ceftriaxone Send urine culture Gentle hydration Resume home medication Resume home insulin Diet regular DVT prophylaxis Lovenox Plan discussed with: Patient Date of Service: Feb 22, 2024 Billing Provider: ED FISHER MD Common Visit Codes: [id number] INP/OBS CARE(HIGH) ED FISHER MD Feb 22, 2024 12:03
[2024-02-22 12:30] VITALS: BP 134/55; PULSE 52; RESP 16; TEMP 97.7; O2SAT 93
[2024-02-22 16:40] VITALS: BP 148/45; PULSE 54; RESP 16; TEMP 99.1; O2SAT 96
[2024-02-22 21:00] VITALS: BP 131/48; PULSE 60; RESP 16; TEMP 98.6; O2SAT 96
[2024-02-22] MEDS: INSULIN LANTUS (GLARGINE) 1 /0.01ml (100units/ml) SC SCH (22:55)
[2024-02-23 01:00] VITALS: BP 121/53; PULSE 59; RESP 16; TEMP 98.1; O2SAT 97
[2024-02-23 05:00] VITALS: BP 120/52; PULSE 60; RESP 17; TEMP 97.8; O2SAT 93
[2024-02-23 08:36] VITALS: BP 138/67; PULSE 58; RESP 21; TEMP 98; O2SAT 97
[2024-02-23] MEDS: ACETAMINOPHEN 325 MG TAB PO PRN (09:10)
[2024-02-23 12:33] VITALS: BP 142/48; PULSE 51; RESP 18; TEMP 98.1; O2SAT 97
[2024-02-23 16:37] VITALS: BP 133/48; PULSE 55; RESP 18; TEMP 98.2; O2SAT 96
--- NOTE | 2024-02-23 17:59 | DVHPN2 ---
Subjective This 58-year-old female admitted for dizziness. Found to have UTI, symptomatic. Patient was seen by me during rounds headache today, otherwise improving Reviewed: H&P Changes from previous H/P or p: No Changes Eyes: No Pain, No Vision change, No Conjunctivae inflammation, No Eyelid inflammation, No Other, No Redness ENT: No Ear pain, No Ear discharge, No Nose pain, No Nose discharge, No Nose congestion, No Mouth pain, No Mouth swelling, No Throat pain, No Throat swelling, No Other Respiratory: No Cough, No Dry, No Shortness of breath, No SOB with excertion, No Wheezing, No Hemoptysis, No Pleuritic Pain, No Sputum, No Other Gastrointestinal: No Nausea, No Vomiting, No Abdominal Pain, No Diarrhea, No Constipation, No Melena, No Hematochezia, No Other Genitourinary: Dysuria; No Frequency, No Incontinence, No Hematuria, No Retention, No Other Musculoskeletal: No other, No neck pain, No shoulder pain, No arm pain, No back pain, No hand pain, No leg pain, No foot pain Skin: No Rash, No Lesions, No Jaundice, No Bruising, No Other Objective Vitals Vital Signs Date Time Temp Pulse Resp B/P (MAP) Pulse Ox O2 Delivery O2 Flow Rate FiO2 02/23/24 16:37 98.2 55 18 133/48 (76) 96 98.2 02/23/24 08:05 Room Air* 0 21 Intake/Output Intake and Output 02/23/24 07:00 Intake Total 834 ml Balance 834 ml Intake Oral 784 ml IV Total 50 ml # Voids 4 # Bowel Movements 1 Exam Alert, oriented x2 PERRLA No JVD Clear breath sounds bilaterally S1-S2 regular rate and rhythm no murmur Suprapubic tenderness, no flank tenderness Equal strength bilaterally on upper and lower extremities No lower extremity edema Medications Current Medications Medications Dose Ordered Sig/Michael Route Start Time Stop Time Status Last Admin Dose Admin Ceftriaxone Sodium 50 ml @ 100 mls/hr DAILY@09 IV 02/22/24 09:00 02/23/24 09:06 100 MLS/HR Diagnostic Test (Pha) 1 strip ACHS 02/21/24 17:00 02/23/24 16:51 1 STRIP Insulin Human Regular AC SC 02/21/24 17:00 02/23/24 17:26 6 UNITS Dextrose 50 ml UD PRN IV 02/21/24 14:00 Sodium Chloride 10 ml Q8HR IV 02/21/24 14:00 02/23/24 14:27 10 ML Insulin Glargine 15 units HS SC 02/22/24 22:00 02/22/24 22:55 15 UNITS Acetaminophen 650 mg Q6HP PRN PO 02/23/24 09:00 02/23/24 09:10 650 MG Laboratory Results Laboratory Tests 02/22/24 03:45 Urinalysis Test 02/21/24 10:29 Urine Color Colorless (Yellow) Urine Clarity Clear (Clear) Urine pH 6.0 (5.0-9.0) Urine Specific [place] 1.013 (1.001-1.035) Urine Protein Negative (Negative) Urine Ketones Negative (Negative) Urine Blood Negative /uL (Negative) Urine Nitrite Negative (Negative) Urine Bilirubin Negative (Negative) Urine Urobilinogen Normal mg/dL (Negative) Urine Leukocyte Esterase 3+ /uL (Negative) Urine RBC 3 /hpf (0 - 4) Urine WBC 14 /hpf (0 - 5) Urine Squamous Epithelial Cells Few /hpf (<5) Urine Bacteria None seen /hpf (None Seen) Urine Glucose 2+ mg/dL (Normal) H Microbiology Microbiology Date/Time Source Procedure Growth Status 02/21/24 22:54 Nose MRSA Screen - Final Complete 02/21/24 10:29 Voided Urine Urine Culture - Final Complete Labs and/or images reviewed: Labs reviewed by me Assessment/Plan Assessment/Plan Symptomatic UTI Confusion secondary to above Dizziness secondary to above Insulin-dependent diabetes Hypertension Continue with ceftriaxone Send urine culture Gentle hydration Resume home medication Resume home insulin tylenol PRN headache Diet regular DVT prophylaxis Lovenox Plan discussed with: Patient My Orders Orders - ED FISHER MD Procedure Category Date Status Time Acetaminophen Tablet PHA 02/23/24 In Process (Tylenol Tablet) 09:00 *Rn Roll Tube Setter REFER 02/23/24 Transmitted Referral 08:52 Date of Service: Feb 23, 2024 Billing Provider: ED FISHER MD Common Visit Codes: [id number] INP/OBS CARE(MOD) ED FISHER MD Feb 23, 2024 17:59
[2024-02-23 21:00] VITALS: BP 134/43; PULSE 59; RESP 20; TEMP 98; O2SAT 97
[2024-02-24 01:00] VITALS: BP 147/54; PULSE 59; RESP 17; TEMP 97.9; O2SAT 94
[2024-02-24 05:00] VITALS: BP 122/57; PULSE 58; RESP 18; TEMP 97.8; O2SAT 97
[2024-02-24 08:00] VITALS: PULSE 77; RESP 20
[2024-02-24] MEDS ORDERED: INSLANTI SC (08:41)
[2024-02-24] MEDS ORDERED: CEPH250C PO (08:41)
[2024-02-24 09:00] VITALS: BP 135/45; PULSE 52; RESP 20; TEMP 97.6; O2SAT 94
--- NOTE | 2024-02-24 12:32 | DVHDS2 ---
Discharge Summary Date of Admission Feb 21, 2024 at 16:32 Date of Discharge: Feb 24, 2024 Labs/Diagnostic Data: Laboratory Results Test 02/24/24 06:25 02/22/24 03:45 02/21/24 10:29 02/21/24 09:52 POC Glucose 203 mg/dl (70-106) White Blood Count 7.0 10^3/uL (4.4-10.8) Red Blood Count 4.44 10^6/uL (4.0-5.20) Hemoglobin 13.4 g/dL (12.2-16.2) Hematocrit 39.7 % (36.0-46.0) Mean Corpuscular Volume 89.4 fL (80.0-100.0) Mean Corpuscular Hemoglobin 30.2 pg (28.0-32.0) Mean Corpuscular Hemoglobin Concent 33.7 g/dL (32.0-36.0) Red Cell Distribution Width 14.4 % (11.8-14.3) Platelet Count 245 10^3/uL (140-450) Mean Platelet Volume 7.8 fL (6.9-10.8) Neutrophils (%) (Auto) 43.4 % (37.0-80.0) Lymphocytes (%) (Auto) 46.1 % (10.0-50.0) Monocytes (%) (Auto) 6.7 % (0.0-12.0) Eosinophils (%) (Auto) 3.1 % (0.0-7.0) Basophils (%) (Auto) 0.7 % (0.0-2.0) Neutrophils # (Auto) 3.0 10 ^3/uL (1.6-8.6) Lymphocytes # (Auto) 3.2 10 ^3/uL (0.4-5.4) Monocytes # (Auto) 0.5 10 ^3/uL (0-1.3) Eosinophils # (Auto) 0.2 10 ^3/uL (0-0.8) Basophils # (Auto) 0 10 ^3/uL (0-0.2) Nucleated Red Blood Cells 0.2 % Sodium Level 141 mmol/L (136-145) Potassium Level 3.8 mmol/L (3.5-5.1) Chloride Level 110 mmol/L (98-107) Carbon Dioxide Level 24 mmol/L (20-31) Anion Gap 7 (5-15) Blood Urea Nitrogen 11 mg/dL (9-23) Creatinine 0.66 mg/dL (0.550-1.02) Glomerular Filtration Rate Calc 97 mL/min (>90) BUN/Creatinine Ratio 16.7 (10.0-20.0) Serum Glucose 147 mg/dL (74-106) Calcium Level 10.3 mg/dL (8.7-10.4) Total Bilirubin 0.3 mg/dL (0.2-1.0) Aspartate Amino Transferase (AST) 19 U/L (13-40) Alanine Aminotransferase (ALT) 23 U/L (7-40) Alkaline Phosphatase 62 U/L (46-116) Total Protein 7.4 g/dL (5.7-8.2) Albumin 4.5 g/dL (3.2-4.8) Urine Color Colorless (Yellow) Urine Clarity Clear (Clear) Urine pH 6.0 (5.0-9.0) Urine Specific [place] 1.013 (1.001-1.035) Urine Protein Negative (Negative) Urine Ketones Negative (Negative) Urine Blood Negative /uL (Negative) Urine Nitrite Negative (Negative) Urine Bilirubin Negative (Negative) Urine Urobilinogen Normal mg/dL (Negative) Urine Leukocyte Esterase 3+ /uL (Negative) Urine RBC 3 /hpf (0 - 4) Urine WBC 14 /hpf (0 - 5) Urine Squamous Epithelial Cells Few /hpf (<5) Urine Bacteria None seen /hpf (None Seen) Urine Glucose 2+ mg/dL (Normal) Troponin I High Sensitivity 4 ng/L (</=34) Other Laboratory Tests 02/22/24 03:45 Brief Hx & Hospital Course: 58-year-old female with diabetes admitted for abdominal pain. Found to have UTI, now improving. We will be discharged on oral antibiotics. Also hyperglycemia during her stay, insulin regimen resent Condition at Discharge: Good Final Diagnosis/Problems List Symptomatic UTI Confusion secondary to above Dizziness secondary to above Insulin-dependent diabetes Hypertension Discharge Disposition: Home Discharge Instruct/Medications Diet: Consistent carbohydrate Activity: No Restrictions, As Tolerated Follow Up/Referral: follow up with PCP Medications: keflex 4 times a day for 7 days to be completed insulin glargine 18 units nightly 38 Discharge Statement: "Patient was advised to return to the ER or call 911 if any headaches, dizziness, shortness of breath, chest pain, abdominal pain, bleeding, fevers, or worsening of medical condition. Patient was counseled about treatment plan, medications, possible side effects, patientverbalized understanding. All questions were answered to the best of my ability. This discharge took greater then 30 minutes in planning, reviewing documentation, counseling the patient, and discussing with other team members." ASSESSMENT ASSESSMENT Assessment Symptomatic UTI Confusion secondary to above Dizziness secondary to above Insulin-dependent diabetes Hypertension Date of Service: Feb 24, 2024 Billing Provider: ED FISHER MD Common Visit Codes: [id number] DISCH DAY >30min ED FISHER MD Feb 24, 2024 12:32
== END 2024-02-24 13:50 | disposition home or self-care (01) | DRG 463 ==
LOC: ER 08:55 → OVERFLOW 16:32 → WEST WING 21:32
PROVIDERS: ADMIT Nurse Practitioner Family; ATTEND Student in an Organized Health Care Education/Training Program
DX: N30.00 Acute cystitis without hematuria (principal); G93.41 Metabolic encephalopathy; E11.65 Type 2 diabetes mellitus with hyperglycemia; I10 Essential (primary) hypertension; Z79.4 Long term (current) use of insulin; Z90.49 Acquired absence of other specified parts of digestive tract
CPT/HCPCS: 36415; 70450; 80048; 80053; 81001; 82962; 84484; 85025; 87081; 87086; 93005; G0378; J1815

== ENCOUNTER 2024-03-08 15:33 | Inpatient (IN) | payer MEDICAID ==
[~2024-03-08] VITALS: Ht 157.5 cm; Wt 64.2 kg
[~2024-03-08 15:33] MED LIST changes: +CEPH250C PO; -NITR-52 PO
--- NOTE | 2024-03-08 15:52 | ED.PDOC ---
History of Present Illness HPI Comments 64-year-old female with PMHx DM, HTN presents with a chief complaint of chest pain, dizziness, dysuria, diaphoresis, neck pain, and headache. Patient states that her pain is localized to her left chest, non-radiating, and is also present to her lateral left neck and head. Patient mentions that she has been feeling this way for 2 days now, but has worsened since this morning. Patient is hypertensive in triage at 180/45. Patients EKG shows NSR with a rate of 66. No other symptoms or modifying factors present at this time. Chief Complaint: Chest Pain Time Seen by MD: 15:43 Primary Care Provider: unknown Reviewed Notes: Nurses Notes, Medications, Allergies Allergies: Coded Allergies: NO KNOWN ALLERGIES (Unverified , 02/05/24) Home Meds Active Scripts Cephalexin (KEFLEX CAPSULE) 250 Mg Cp, 1 CAP PO QID for 7 Days, #28 CAP Prov:ED FISHER MD 02/24/24 Insulin Glargine (Lantus) 100 Unit/Ml Inj, 18 UNITS SC HS for 30 Days, #30 INJ Prov:ED FISHER MD 02/24/24 Lancets (Freestyle Lancets) Lancets Mis, APPLIC XX BID, #60 60 LANCETS, 2 LANCETS EACH DAY Prov:EFRAIN LOUIE 02/07/24 Blood Glucose Monitoring Suppl (D-Care Glucometer Kit/Glu W/Device) 1 Kit Kit, KIT XX DAILY PRN, #1 1 Refill CHECK GLUCOSE TWICE A DAY Prov:EFRAIN LOUIE RESIDENT 02/07/24 Information Source: Patient Mode of Arrival: Wheelchair Severity: Moderate Timing: Days Duration: Since onset Prehospital treatment: None Associated signs and symptoms Generalized weakness with chest pain and shortness a breath Past Medical History PAST MEDICAL HISTORY: DM, HTN Surgical History: Cholecystectomy GAG WRITER History: Denies all GAG WRITER Hx Family History Family History: Reviewed,noncontributory to illness Social History Smoker: Non-Smoker Alcohol: Denies ETOH Use Drugs: Denies Drug Use Lives In: Home Constitutional: reports: diaphoresis; denies: chills, fatigue, fever, malaise, sweats, weakness, others EENTM: denies: blurred vision, double vision, ear bleeding, ear discharge, ear drainage, ear pain, ear ringing, eye pain, eye redness, hearing loss, mouth pain, mouth swelling, nasal discharge, nose bleeding, nose congestion, nose pain, photophobia, tearing, throat pain, throat swelling, voice changes, others Respiratory: denies: cough, hemoptysis, orthopnea, SOB at rest, shortness of breath, SOB with excertion, stridor, wheezing, others Cardiovascular: reports: chest pain; denies: dizzy spells, diaphoresis, Dyspnea on exertion, edema, irregular heart beat, left arm pain, lightheadedness, palpitations, PND, syncope, others Gastrointestinal: denies: abdomen distended, abdominal pain, blood streaked bowels, constipated, diarrhea, dysphagia, difficulty swallowing, hematemesis, melena, nausea, poor appetite, poor fluid intake, rectal bleeding, rectal pain, vomiting, others Genitourinary: reports: dysuria; denies: abnormal vagina bleeding, burning, dyspareunia, flank pain, frequency, hematuria, incontinence, pain, , vagina discharge, urgency, others Neurological: reports: dizziness, headache; denies: fainting, left sided numbness, left sided weakness, numbness, paresthesia, pre-existing deficit, right sided numbness, right sided weakness, seizure, speech problems, tingling, tremors, weakness, others Musculoskeletal: reports: neck pain; denies: back pain, gout, joint pain, joint swelling, muscle pain, muscle stiffness, others Integumetry: denies: bruises, change in color, change in hair/nails, dryness, laceration, lesions, lumps, rash, wounds, others Allergic/Immunocompromised: denies: Difficulty Healing, Frequent Infections, Hives, Itching, others Hematologic/Lymphatic: denies: anemia, blood clots, easy bleeding, easy bruising, swollen glands, others Endocrine: denies: excessive hunger, excessive sweating, excessive thirst, excessive urination, flushing, intolerance to cold, intolerance to heat, unexplained weight gain, unexplained weight loss, others Psychiatric: denies: anxiety, bipolar disorder, depression, hopeless, panic disorder, schizophrenia, sleepless, suicidal, others All Other Systems: Reviewed and Negative Physical Exam General Appearance: Moderate Distress HEENT: Normal ENT Inspection, Pharynx Normal, TMs Normal Neck: Full Range of Motion, Non-Tender, Normal, Normal Inspection Respiratory: Chest Non-Tender, Lungs Clear, No Accessory Muscle Use, No Respiratory Distress, Normal Breath Sounds Cardiovascular: No Edema, No JVD, No Murmur, No Gallop, Normal Peripheral Pulses, Regular Rate/Rhythm Breast Exam: Deferred Gastrointestinal: No Organomegaly, Non Tender, No Pulsatile Mass, Normal Bowel Sounds, Soft Genitalia: Deferred Pelvic: Deferred Rectal: Deferred Extremities: No calf tenderness, Normal capillary refill, Normal inspection, Normal range of motion, Non-tender, No pedal edema Musculoskeletal : Apperance: Normal Neurologic: Alert, research kennel supervisor II-XII nml as Tested, No Motor Deficits, Normal Affect, Normal Mood, No Sensory Deficits Cerebellar Function: Normal Reflexes: Normal Skin: Dry, Normal Color, Warm Lymphatic: No Adenopathy Was a procedure done? Was a procedure done?: No EKG EKG : Pulse Rate (adult): 66 [place]: Normal Cardiac Rhythm: NSR Block: None Hypertrophy: None ST: Normal Differential Dx Considerations may include: UTI, sepsis, chest pain, CVA X-Ray, Labs, Meds, VS Vital Signs Date Time Temp Pulse Resp B/P (MAP) Pulse Ox O2 Delivery O2 Flow Rate FiO2 03/08/24 17:12 53 18 96 Room Air 03/08/24 17:12 53 18 163/64 (97) 96 03/08/24 16:24 50 16 180/45 (90) 100 03/08/24 15:42 50 Lab Test 03/08/24 18:39 03/08/24 17:05 03/08/24 16:33 03/08/24 15:53 Range/Units Lactic Acid Level Pending 5.2 *H 0.4-2.0 mmol/L Troponin I High Sensitivity Pending 3 L 3 L </=34 ng/L POC Glucose 177 H 70-106 mg/dl White Blood Count 6.9 4.4-10.8 10^3/uL Red Blood Count 4.53 4.0-5.20 10^6/uL Hemoglobin 14.1 12.2-16.2 g/dL Hematocrit 41.2 36.0-46.0 % Mean Corpuscular Volume 90.9 80.0-100.0 fL Mean Corpuscular Hemoglobin 31.2 28.0-32.0 pg Mean Corpuscular Hemoglobin Concent 34.3 32.0-36.0 g/dL Red Cell Distribution Width 14.6 H 11.8-14.3 % Platelet Count 215 140-450 10^3/uL Mean Platelet Volume 7.9 6.9-10.8 fL Neutrophils (%) (Auto) 48.0 37.0-80.0 % Lymphocytes (%) (Auto) 44.4 10.0-50.0 % Monocytes (%) (Auto) 4.9 0.0-12.0 % Eosinophils (%) (Auto) 1.9 0.0-7.0 % Basophils (%) (Auto) 0.8 0.0-2.0 % Neutrophils # (Auto) 3.3 1.6-8.6 10 ^3/uL Lymphocytes # (Auto) 3.1 0.4-5.4 10 ^3/uL Monocytes # (Auto) 0.3 0-1.3 10 ^3/uL Eosinophils # (Auto) 0.1 0-0.8 10 ^3/uL Basophils # (Auto) 0.1 0-0.2 10 ^3/uL Nucleated Red Blood Cells 0.1 % D-Dimer, Quantitative 0.31 0.0-0.49 mg/L FEU Sodium Level 142 136-145 mmol/L Potassium Level 3.8 3.5-5.1 mmol/L Chloride Level 106 98-107 mmol/L Carbon Dioxide Level 21 20-31 mmol/L Anion Gap 15 5-15 Blood Urea Nitrogen 11 9-23 mg/dL Creatinine 0.87 0.550-1.02 mg/dL Glomerular Filtration Rate Calc 73 >90 mL/min BUN/Creatinine Ratio 12.6 10.0-20.0 Serum Glucose 148 H 74-106 mg/dL Calcium Level 10.5 H 8.7-10.4 mg/dL Total Bilirubin 0.3 0.2-1.0 mg/dL Aspartate Amino Transferase (AST) 20 13-40 U/L Alanine Aminotransferase (ALT) 26 7-40 U/L Alkaline Phosphatase 63 46-116 U/L Total Protein 7.8 5.7-8.2 g/dL Albumin 4.7 3.2-4.8 g/dL Test 03/08/24 15:43 Range/Units POC Glucose 131 H 70-106 mg/dl Current Medications Medications (Trade) Dose Ordered Sig/Michael Route Start Time Stop Time Status Last Admin Sodium Chloride 500 ml @ 500 mls/hr Q1H ONCE IVB 03/08/24 16:00 03/08/24 16:59 DC 03/08/24 16:00 Acetaminophen (Tylenol Tablet) 650 mg ONCE ONCE PO 03/08/24 17:15 03/08/24 17:16 DC 03/08/24 17:[address] Scan Impression: No CT evidence of acute intracranial abnormality. Chest X-Ray Impression: Negative AP chest. The patient was CBC and chemistry panel are within normal limits The patient was given acetaminophen 650 mg p.o. The patient was bolused normal saline at 500 cc The patient's lactic acid level is elevated 5.2 At this time, the patient was being admitted Images Reviewed?: Images reviewed and evaluated by me Time of 1ST Reevaluation: 16:13 Reevaluation 1ST: Unchanged Patient Education/Counseling: Diagnosis, Treatment, Prognosis Family Education/Counseling: No Family Present Departure 1 Departure Time of Disposition: 18:59 Impression: Primary Impression: Elevated lactic acid level Additional Impression: Generalized weakness Disposition: ADMITTED INPATIENT Admit to: Tele Condition: Fair Critical Care Note Critical Care Time?: Yes (35 min-critical care time only) Stability Stability form required: Yes Unstable for transfer: Telemetry monitoring (Telemetry monitoring required), ED Physician Assesment (Clinical assesment) Heart Score Heart Score: Heart Score Response (Comments) Value History N/A 0 EKG N/A 0 Age N/A 0 Risk Factors N/A 0 Troponin N/A 0 Total 0 I personally scribed for CLARIBEL CHEUNG MD ([email or web address]) on 03/08/24 at 15:52. Electronically submitted by Elias Jeffrey ([email or web address]). I personally scribed for CLARIBEL CHEUNG MD ([email or web address]) on 03/08/24 at 16:23. Electronically submitted by Elias Jeffrey ([email or web address]). I personally scribed for CLARIBEL CHEUNG MD ([email or web address]) on 03/08/24 at 16:24. Electronically submitted by Elias Jeffrey ([email or web address]). CLARIBEL CHEUNG MD Mar 08, 2024 15:52
[2024-03-08] MEDS: SODIUM CHLORIDE 0.9% 500 ML IVB ONE (16:00)
--- NOTE | 2024-03-08 16:16 | DVH ---
EXAM: CT HEAD WITHOUT CONTRAST INDICATION: sunshine TECHNIQUE: CT of the head without intravenous contrast. Radiation Dose Information: CT Dose: CTDI volume is 52.39 mGy. Dose-length product is 926.16 mGy*cm The dose indicators for CT are the volume Computed Tomography (CT) Dose Index (CTDIvol) and the Dose Length Product (DLP), and are measured in units of mGy and mGy-cm, respectively. These indicators are not patient dose, but values generated from the CT scanner acquisition factors. The report includes radiation exposure data for exposures received during this examination. COMPARISON: CT HEAD WITHOUT CONTRAST on DOS: 02/21/24 FINDINGS: There is no evidence of acute intracranial hemorrhage, extra-axial collection, mass effect, midline s hift, herniation or hydrocephalus. The ventricles, sulci and cisterns are age appropriate. The moses-white differentiation is intact. The visualized paranasal sinuses and mastoid air cells are clear. The surrounding soft tissues and osseous structures are unremarkable. IMPRESSION: 1. No CT evidence of acute intracranial abnormality. HS:Y
--- NOTE | 2024-03-08 16:23 | DVH ---
EXAMINATION: AP portable chest radiograph CLINICAL HISTORY: weakness COMPARISON: XY CHEST PORTABLE on DOS: 02/05/24 TECHNIQUE: SINGLE VIEW OF THE CHEST FINDINGS: Negative AP chest. No dominant consolidations. The costophrenic angles are clear. No sizable pleural effusions or pneumo thorax identified. The cardiomediastinal silhouette appears within normal limits given technique. IMPRESSION: 1. Negative AP chest.
[2024-03-08 16:27] LABS: Basophils # (auto) 0.1 10 ^3/uL (0-0.2); Basophils % (auto) 0.8 % (0.0-2.0); Eosinophils # (auto) 0.1 10 ^3/uL (0-0.8); Eosinophils % (auto) 1.9 % (0.0-7.0); Hematocrit 41.2 % (36.0-46.0); Hemoglobin 14.1 g/dL (12.2-16.2); Lymphocytes # (auto) 3.1 10 ^3/uL (0.4-5.4); Lymphocytes % (auto) 44.4 % (10.0-50.0); Mean Corpuscular Hemoglobin 31.2 pg (28.0-32.0); Mean Corpuscular Hgb Conc. 34.3 g/dL (32.0-36.0); Mean Corpuscular Volume 90.9 fL (80.0-100.0); Monocytes # (auto) 0.3 10 ^3/uL (0-1.3); Monocytes % (auto) 4.9 % (0.0-12.0); Neutrophils # (auto) 3.3 10 ^3/uL (1.6-8.6); Nucleated Red Blood Cells % 0.1 %; Platelet Count (auto) 215 10^3/uL (140-450); Red Blood Cells 4.53 10^6/uL (4.0-5.20); Red Cell Distribution Width 14.6 % (11.8-14.3); White Blood Cell 6.9 10^3/uL (4.4-10.8)
[2024-03-08 17:14] LABS: Alanine Aminotransferase 26 U/L (7-40); Albumin 4.7 g/dL (3.2-4.8); Alkaline Phosphatase 63 U/L (46-116); Anion Gap 15 (5-15); Aspartate Aminotransferase 20 U/L (13-40); BUN/Creatinine Ratio 12.6 (10.0-20.0); Blood Urea Nitrogen 11 mg/dL (9-23); Carbon Dioxide 21 mmol/L (20-31); Chloride 106 mmol/L (98-107); Potassium 3.8 mmol/L (3.5-5.1); Sodium 142 mmol/L (136-145)
[2024-03-08 17:15] LABS: Bilirubin, Total 0.3 mg/dL (0.2-1.0); Total Protein 7.8 g/dL (5.7-8.2)
[2024-03-08 17:16] LABS: Calcium 10.5 mg/dL (8.7-10.4); Glucose 148 mg/dL (74-106)
[2024-03-08] MEDS: ACETAMINOPHEN 325 MG TAB PO ONE (17:18)
[2024-03-08 17:43] LABS: Lactic Acid w/Reflex 5.2 mmol/L (0.4-2.0)
[2024-03-08] MEDS ORDERED: ONDANSETRON HCL 4 MG/2 ML VIAL IV PRN (20:30)
[2024-03-08] MEDS ORDERED: ACETAMINOPHEN 325 MG TAB PO PRN (20:30)
[2024-03-08] MEDS ORDERED: MORPHINE SULFATE INJ 2 MG/ml SYRG IV PRN ×2 (20:30)
[2024-03-08] MEDS ORDERED: NITROGLYCERIN 0.4 MG SL TAB SL PRN (20:30)
[2024-03-08] MEDS ORDERED: DOCUSATE SOD 100 MG CAP PO PRN (20:30)
--- NOTE | 2024-03-08 22:29 | DVHHPRES ---
History of Present Illness Resident Creating Document: MARQUIS KNIGHT RESIDENT History of Present Illness Patient is 64 years old female with past medical history of hypertension, diabetes mellitus type 2 with a complaint of elevated blood pressure and left shoulder pain. Patient reported that her blood pressure was elevated at home and also her blood sugar was also elevated that is why she came to the ER. Patient also reported that she has numbness in the hands and headache started in the afternoon., headache was 4/10 associated with some dizziness and numbness of the hand. Patient also endorsed dysuria yesterday but denied dysuria today and increased frequency of micturition. On further discussion patient also reported having left shoulder pain , 4/10. Patient denied chest pain, shortness of breath, palpitation, dysarthria, acute joint pain or swelling, constipation or diarrhea. Arrival blood pressure was 180/45, pulse 50. Initial lab workup revealed lactic acidosis 5.2, blood sugar level 177. Other lab workup including WBC, hemoglobin, serum creatinine, sodium, potassium, AST, ALT, serum bilirubin, troponin I, TSH within normal limit. D-dimer 0.31. Urinalysis leukocyte esterase 3+, WBC 56, RBC 4, bacteria few Initial chest x-ray revealed no acute cardiopulmonary disease, CT head read negative for intracranial hemorrhage or infarction. Left shoulder x-ray-No grossly displaced fractures or dislocations are evident on the provided views. Glenohumeral articulation appears intact. Home medications insulin Lantus, metformin, olmesartan. Past Medical History hypertension, diabetes mellitus type 2 Past Surgical History Cholecystectomy Family History Dad had diabetes mellitus Past Social History Lives with son, denies smoking/alcoholism/drug abuse. Review of Systems Review of Systems Allergy- NKDA Patient was seen today at the bedside. Patient left shoulder pain Cardiovascular- deny acute chest pain or shortness of breath or cough or palpitation Respiratory- denies cough or short of breath or wheezing Gastrointestinal- denies any rectal bleeding, nausea or vomiting Musculoskeletal-denies acute joint swelling or tenderness or redness Neurological- denies acute dysarthria, dysphagia, change in vision Psychiatry- denies depression or SI or HI Skin- denies acute rash or purpura Allergies: Coded Allergies: NO KNOWN ALLERGIES (Unverified , 02/05/24) Medications Current Medications Medications Dose Ordered Sig/Michael Route Start Time Stop Time Status Last Admin Dose Admin Ondansetron HCl 4 mg Q4HP PRN IV 03/08/24 20:30 Docusate Sodium 100 mg BIDPRN PRN PO 03/08/24 20:30 Acetaminophen 650 mg Q6HP PRN PO 03/08/24 20:30 Morphine Sulfate 2 mg Q4HPRN PRN IV 03/08/24 20:30 Nitroglycerin 0.4 mg Q5MINP PRN SL 03/08/24 20:30 Morphine Sulfate 2 mg Q30M PRN IV 03/08/24 20:30 Hydralazine HCl 10 mg Q6HP PRN IV 03/08/24 21:00 Hydralazine HCl 10 mg Q6HR IV 03/09/24 00:00 Exam Vital Signs Vital Signs Date Time Temp Pulse Resp B/P (MAP) Pulse Ox O2 Delivery O2 Flow Rate FiO2 03/08/24 20:00 98.9 53 18 152/60 (90) 99 98.9 03/08/24 17:12 Room Air Exam General examination- awake, alert, oriented, conversant HEENT- PEERLA, no acute nasal discharge Cardiovascular- S1-S2 audible, rate and rhythm regular, no murmur Respiratory- CTAB, no wheeze or rhonchi Gastrointestinal-nontender, bowel sound+. Nondistended Musculoskeletal-no acute joint swelling or tenderness or redness# Lower extremity- no leg edema Neurological- cranial nerves intact, no acute dysarthria or dysphagia Psychiatry- denies depression or SI or HI Skin- no acute rash or purpura Labs/Xrays Labs Test 03/08/24 18:39 03/08/24 17:05 03/08/24 15:53 Range/Units Lactic Acid Level 3.9 *H 0.4-2.0 mmol/L Troponin I High Sensitivity 4 </=34 ng/L POC Glucose 177 H 70-106 mg/dl White Blood Count 6.9 4.4-10.8 10^3/uL Red Blood Count 4.53 4.0-5.20 10^6/uL Hemoglobin 14.1 12.2-16.2 g/dL Hematocrit 41.2 36.0-46.0 % Mean Corpuscular Volume 90.9 80.0-100.0 fL Mean Corpuscular Hemoglobin 31.2 28.0-32.0 pg Mean Corpuscular Hemoglobin Concent 34.3 32.0-36.0 g/dL Red Cell Distribution Width 14.6 H 11.8-14.3 % Platelet Count 215 140-450 10^3/uL Mean Platelet Volume 7.9 6.9-10.8 fL Neutrophils (%) (Auto) 48.0 37.0-80.0 % Lymphocytes (%) (Auto) 44.4 10.0-50.0 % Monocytes (%) (Auto) 4.9 0.0-12.0 % Eosinophils (%) (Auto) 1.9 0.0-7.0 % Basophils (%) (Auto) 0.8 0.0-2.0 % Neutrophils # (Auto) 3.3 1.6-8.6 10 ^3/uL Lymphocytes # (Auto) 3.1 0.4-5.4 10 ^3/uL Monocytes # (Auto) 0.3 0-1.3 10 ^3/uL Eosinophils # (Auto) 0.1 0-0.8 10 ^3/uL Basophils # (Auto) 0.1 0-0.2 10 ^3/uL Nucleated Red Blood Cells 0.1 % D-Dimer, Quantitative 0.31 0.0-0.49 mg/L FEU Sodium Level 142 136-145 mmol/L Potassium Level 3.8 3.5-5.1 mmol/L Chloride Level 106 98-107 mmol/L Carbon Dioxide Level 21 20-31 mmol/L Anion Gap 15 5-15 Blood Urea Nitrogen 11 9-23 mg/dL Creatinine 0.87 0.550-1.02 mg/dL Glomerular Filtration Rate Calc 73 >90 mL/min BUN/Creatinine Ratio 12.6 10.0-20.0 Serum Glucose 148 H 74-106 mg/dL Calcium Level 10.5 H 8.7-10.4 mg/dL Total Bilirubin 0.3 0.2-1.0 mg/dL Aspartate Amino Transferase (AST) 20 13-40 U/L Alanine Aminotransferase (ALT) 26 7-40 U/L Alkaline Phosphatase 63 46-116 U/L Total Protein 7.8 5.7-8.2 g/dL Albumin 4.7 3.2-4.8 g/dL Assessment/Plan Assessment/Plan # hypertensive urgency -reported elevated home BP -insulin BP at ER was 180/45 -patient complained of headache, dizziness -CT head negative for acute intracranial hemorrhage or infarction -continue hydralazine 10 mg q.6h p.r.n. -continue amlodipine 5 mg q.d. -monitor blood pressure #Diabetes mellitus type 2 -HGB A1c 8.6 -continue insulin sliding scale as prescribed #Lactic acidosis likely due to metformin use -continue IV normal saline as prescribed #UTI -patient complained of dysuria and increased frequency of micturition -urinalysis leukocyte esterase 3+, WBC 56, RBC 4, bacteria few -continue ceftriaxone 1 g IV daily -pending urine CS # headache and dizziness likely due to hypertensive urgency -no acute lateralizing sign -CT scan negative for acute intracranial hemorrhage or infarction -continue current management # sinus bradycardia -EKG sinus bradycardia, no ST elevation or T-wave change -TSH 2.08 -monitor clinically # left shoulder pain -x-ray left shoulder negative for any acute fracture -continue pain medication as prescribed Goals of care/advance care planning; FULL CODE; discussed with the patient >15 minutes PUD prophylaxis: Famotidine DVT prophylaxis: Lovenox PCP-patient could not mentioned the name of the PCP Plan discussed with Dr. Marley, nursing staff, patient Total time spent on patient evaluation, chart review, assessment and plan, discussion discussion >30 minutes Plan discussed with: Patient Plan discussed with: Patient, Daughter, Other (RN) My Orders Orders - MARQUIS KNIGHT RESIDENT Procedure Category Date Status Time Code Status CODE 03/08/24 Transmitted 20:26 Ondansetron Hcl PHA 03/08/24 In Process (Zofran) 20:30 Docusate Sodium PHA 03/08/24 In Process Capsule (Colace 20:30 Complete Blood Count LAB 03/09/24 Verified 04:00 Comprehensive LAB 03/09/24 Verified Metabolic Panel 04:00 Cardiac DIET 03/09/24 Transmitted Diet-2gna,Lofat,Lochol Breakfast Echo 2d Mode Cardiac US 03/08/24 Logged DOP 20:26 Acetaminophen Tablet PHA 03/08/24 In Process (Tylenol Tablet) 20:30 Morphine Sulfate PHA 03/08/24 In Process Injection 20:30 Nitroglycerin PHA 03/08/24 In Process Sublingual (Ntrostat 20:30 Morphine Sulfate PHA 03/08/24 In Process Injection 20:30 Oxygen By Nasal RT 03/08/24 Transmitted Cannula 20:26 Stat Ekg For Chest ROSY 03/08/24 In Process Pain 20:26 Notify Of Changes [facility] 03/08/24 In Process From Base 20:26 Powder Room Attendant For [facility] 03/08/24 In Process 24 Hours 20:26 Emergency Dysrhythmia [facility] 03/08/24 In Process Protocol 20:26 Rhythm Strips Once [facility] 03/08/24 In Process Every Shift 20:26 Urinalysis LAB 03/08/24 Logged 20:47 Drug Screen LAB 03/08/24 Logged 20:47 Hydralazine Injection PHA 03/08/24 In Process (Apresoline Inject 21:00 Hydralazine Injection PHA 03/09/24 In Process (Apresoline Inject 00:00 Thyroid Stimulating LAB 03/08/24 In Process Hormone 21:50 Free T3 LAB 03/08/24 In Process 21:50 Free T4 (Free LAB 03/08/24 In Process Thyroxine) 21:50 L Shoulder 2+ View XY 03/08/24 Taken Xray 21:50 Admit ADMIT 03/08/24 Transmitted 21:51 Date of Service: Mar 08, 2024 Billing Provider: MARIA GUADALUPE MARLEY MD Common Visit Codes: [id number] INP/OBS CARE (HIGH) Secondary Visit Codes: [id number] CARE PLAN 30 MINUTES MARQUIS KNIGHT RESIDENT Mar 08, 2024 22:29 MARIA GUADALUPE MARLEY MD Mar 10, 2024 07:59
--- NOTE | 2024-03-08 22:33 | DVH ---
EXAMINATION: 3 views of the left shoulder CLINICAL HISTORY: LT SHOULDER PAIN COMPARISON: None Findings and impression: No grossly displaced fractures or dislocations are evident on the provided views. Glenohumeral articu lation appears intact. If the patient has continued symptoms clinically suspicious for radiographically occult fracture, fol low-up radiographs could be obtained in 7-10 days time.
[2024-03-08] MEDS ORDERED: DEXTROSE (50%) 50ML SYRG IV PRN (23:00)
[2024-03-09] VITALS (13 sets, daily range): BP systolic 113–155; BP diastolic 27–56; PULSE 50–73; RESP 14–18; TEMP 98–98.7; O2SAT 95–99
[2024-03-09] MEDS ORDERED: hydrALAZINE HCL 20 MG/ML VL IV SCH
[2024-03-09] MEDS: ASPirin 81 mg TAB PO ONE (00:24)
[2024-03-09] MEDS: amLODIPine BESYLATE 5 MG TAB PO ONE (00:28)
[2024-03-09] MEDS: ENOXAPARIN SOD 40 MG/0.4 ML SYRINGE SC ONE (00:29)
[2024-03-09] MEDS: SODIUM CHLORIDE 0.9% 1,000 ML IV SCH (00:44)
[2024-03-09] MEDS: cefTRIAXone 1GM/50ML D5W 50 ML IV ONE (00:45)
[2024-03-09 01:19] LABS: Urine Bacteria FEW /hpf (None Seen); Urine Blood Negative /uL (Negative); Urine Clarity Clear (Clear); Urine Color Light-Yellow (Yellow); Urine Mucus FEW (None Seen); Urine Protein, UAD Negative (Negative); Urine Specific Gravity 1.019 (1.001-1.035); Urine Urobilinogen Normal (Negative); Urine WBC 56 /hpf (0 - 5); Urine pH 5.5 (5.0-9.0)
[2024-03-09] MEDS: FAMOTIDINE (10MG/ML) 2ML VL IV ONE (02:00)
[2024-03-09 02:02] LABS: Cannabinoid Screen, Urine Neg (NEGATIVE)
[2024-03-09 02:03] LABS: Amphetamine Screen, Urine Neg (NEGATIVE); Barbiturate Scree,Urine Neg (NEGATIVE); Benzodiazephine Screen, Urine Neg (NEGATIVE); Cocaine Screen, Urine Neg (NEGATIVE); Opiate Scree,Urine Neg (NEGATIVE); Phencyclidine Screen, Urine Neg (NEGATIVE)
[2024-03-09 06:07] LABS: Basophils # (auto) 0 10 ^3/uL (0-0.2); Basophils % (auto) 0.6 % (0.0-2.0); Eosinophils # (auto) 0.2 10 ^3/uL (0-0.8); Eosinophils % (auto) 2.7 % (0.0-7.0); Hematocrit 37.4 % (36.0-46.0); Hemoglobin 12.8 g/dL (12.2-16.2); Lymphocytes # (auto) 3.2 10 ^3/uL (0.4-5.4); Lymphocytes % (auto) 50.5 % (10.0-50.0); Mean Corpuscular Hemoglobin 30.9 pg (28.0-32.0); Mean Corpuscular Hgb Conc. 34.3 g/dL (32.0-36.0); Mean Corpuscular Volume 90.1 fL (80.0-100.0); Monocytes # (auto) 0.4 10 ^3/uL (0-1.3); Monocytes % (auto) 5.7 % (0.0-12.0); Neutrophils # (auto) 2.6 10 ^3/uL (1.6-8.6); Neutrophils % (auto) 40.5 % (37.0-80.0); Nucleated Red Blood Cells % 0.1 %; Platelet Count (auto) 197 10^3/uL (140-450); Red Blood Cells 4.15 10^6/uL (4.0-5.20); Red Cell Distribution Width 14.7 % (11.8-14.3); White Blood Cell 6.3 10^3/uL (4.4-10.8)
[2024-03-09] MEDS: ACCU-CHEK COMFORT CURVE STRIP VI SCH (06:20)
[2024-03-09] MEDS: InsuLIN REG 1unit/0.01ml Soln (100units/ml) SC SCH (06:20)
[2024-03-09 06:25] LABS: Alanine Aminotransferase 22 U/L (7-40); Albumin 3.9 g/dL (3.2-4.8); Alkaline Phosphatase 50 U/L (46-116); Anion Gap 9 (5-15); Aspartate Aminotransferase 15 U/L (13-40); BUN/Creatinine Ratio 12.7 (10.0-20.0); Calcium 9.4 mg/dL (8.7-10.4); Carbon Dioxide 24 mmol/L (20-31); Cholesterol 151 mg/dL (< 200); LDL Cholesterol 87 mg/dL (< 100)
[2024-03-09 06:26] LABS: Total Protein 6.5 g/dL (5.7-8.2)
[2024-03-09 06:45] LABS: Chloride 114 mmol/L (98-107); Glucose 64 mg/dL (74-106); Potassium 3.4 mmol/L (3.5-5.1); Sodium 147 mmol/L (136-145)
[2024-03-09 06:46] LABS: Bilirubin, Total 0.3 mg/dL (0.2-1.0); Blood Urea Nitrogen 8 mg/dL (9-23); HDL Cholesterol 37 mg/dL (40-59); Triglycerides 177 mg/dL (< 150)
[2024-03-09] MEDS: POTASSIUM EFFERVESENT TAB 25 MEQ PO ONE (10:28)
[2024-03-09] MEDS: ASPirin 81 mg TAB PO SCH (10:28)
[2024-03-09] MEDS: amLODIPine BESYLATE 5 MG TAB PO SCH (10:29)
--- NOTE | 2024-03-09 12:12 | DVHPNRES ---
Progress Note Date Seen: Mar 09, 2024 Resident Creating Document: IBIS TIRADOKATERYNAMOISES RESIDENT Medical Necessity Reason Pt with a Central, PICC or Fol: No Subjective Review of Systems Patient is 64 year old female with a past medical history of Hypertension and T2DM presented to the ED with the chief complaint of Dizziness for a few hours prior to admission. Patient was apparently doing well when a few hours before admission when she got up from the bed and felt dizzy and had left shoulder pain with numbness in the left hand . Patient denied chest pain, shortness of breath, palpitations, sweating, nausea, vomiting. no headache, no blurry vision, and no sensation of spinning when the patient had dizziness. patient denied fever and chills. Head CT without contrast was done which did not show any acute intracranial abnormality. Left shoulder x-ray shows no grossly displaced fractures or dislocations. Patient's blood pressure on admission was 180/45 mmHg with no signs of organ failure. Patient's records reviewed and she was discharged about 2 weeks ago after being admitted for a UTI. Past medical history: As per HPI Past social history cholecystectomy: Social history: Lives with family, denies smoking, alcohol, drug use Home medication: Telmisartan, insulin and metformin Review of systems Patient seen and examined at the bedside. Alert and oriented to time, place and person. Patient reports that her left shoulder pain has improved. She does not report feeling dizzy. No altered sensorium. Patient reports dysuria with burning micturition. Patient's blood pressure is mildly elevated. Patient reports no headache. Vitals showed no orthostatic hypotension. Urinalysis showed elevated leukocyte esterase, increased urine WBCs. Objective vital signs Vital Sign Date Time Temp Pulse Resp B/P (MAP) Pulse Ox O2 Delivery O2 Flow Rate FiO2 03/09/24 10:29 113/50 03/09/24 08:46 98.6 60 14 96 98.6 03/09/24 02:19 Room Air* 0 21 Total Intake and Output 03/08/24 03/08/24 03/09/24 15:00 23:00 07:00 Intake Total 0 ml Balance 0 ml medications Current Medications Medications Dose Ordered Sig/Michael Route Start Time Stop Time Status Last Admin Dose Admin Ondansetron HCl 4 mg Q4HP PRN IV 03/08/24 20:30 Docusate Sodium 100 mg BIDPRN PRN PO 03/08/24 20:30 Acetaminophen 650 mg Q6HP PRN PO 03/08/24 20:30 Morphine Sulfate 2 mg Q4HPRN PRN IV 03/08/24 20:30 Nitroglycerin 0.4 mg Q5MINP PRN SL 03/08/24 20:30 Morphine Sulfate 2 mg Q30M PRN IV 03/08/24 20:30 Hydralazine HCl 10 mg Q6HP PRN IV 03/08/24 21:00 Hydralazine HCl 10 mg Q6HR IV 03/09/24 00:00 Cancel Diagnostic Test (Pha) 1 strip ACHS 03/09/24 07:00 03/09/24 11:51 1 STRIP Insulin Human Regular ACHS SC 03/09/24 07:00 Dextrose 50 ml UD PRN IV 03/08/24 23:00 Amlodipine Besylate 5 mg DAILY PO 03/09/24 10:00 03/09/24 10:29 5 MG Aspirin 81 mg DAILY PO 03/09/24 10:00 03/09/24 10:28 81 MG Atorvastatin Calcium 40 mg HS PO 03/09/24 22:00 Enoxaparin Sodium 40 mg DAILY@0000 SC 03/10/24 00:00 Ceftriaxone Sodium 50 ml @ 100 mls/hr DAILY@0100 IV 03/10/24 01:00 Famotidine 20 mg Q12HR IV 03/09/24 22:00 Examination Physical Examination Gen - no pallor, no icterus, no cyanosis, no clubbing, no LAD, no edema . Skin - Patients skin is warm and dry. HEENT - normocephalic, atraumatic, moist mucous membranes. Neck - full ROM, no LAD, no JVD. Pulmonary - B/L vesicular breath sounds. no crackles , no wheezing, no stridor. cardiovascular - normal S1,S2 heard. no murmurs heard. peripheral pulses normal radial 2+, pedal 2+. capillary refill normal <2 secs. GI - soft abdomen with mild tenderness to palpation in the suprapubic region. no CVA tenderness. no hepatospleenomegaly. Neurological - Patient is A/O X 3 . Bilateral upper extremity strength 5/5, bilateral lower extremity strength 5/5, no facial droop, normal speech, no tremor, no sensory deficiets. laboratory and microbiology Laboratory Tests 03/09/24 05:34 Test 03/09/24 05:34 Range/Units Serum Glucose 64 L 74-106 mg/dL Labs and/or images reviewed: Labs reviewed by me, Image(s) reviewed by me Problem List/Assessment/Plan Problem List/Assessment/Plan Assessment and Plan # Dizziness likely d/t ? hypoglycemia ?orthostatic hypotension ?bradycardia - CT head showed no acute intracranial abnormality - no orthostatic hypotension in the hospital - no electrolyte abnormalities - patient given IV fluids # Lactic acidosis, resolved - given IV fluids # Uncontrolled hypertension - given amlodipine - started on losartan 25mg once daily - echo shows LVEF 55% with grade 1 diastolic dysfunction, slightly increased RVSP of 34 mmHg # UTI likely acute cystitis - UA shows elevated urine WBC, LE with few bacteria - On ceftriaxone IV daily - urine culture pending # Hypokalemia - replaced adequately # Hypertriglyceridemia - On atorvastatin 40mg hs # Uncontrolled T2DM - Hb A1c- 8.9% - on mild ISS Goals of care discussed with the patient for 20 minutes; Full code Case discussed with Dr. Vidales Plan discussed with: Patient, Other (Nurse) My Orders My Orders Orders - DANUTA TIRADO RESIDENT Procedure Category Date Status Time Discontinue Tele ROSY 03/09/24 In Process 09:29 Transfer Orders XFER 03/09/24 Transmitted 09:29 Orthostatic Vital ORDERS 03/09/24 Transmitted Signs 11:18 Addendum Addendum Addendum I was physically present for the charles portions of the service provided to patient by THE RESIDENT. I have reviewed the documentation, discussed the case with resident and agree with the resident's documentation except as noted. Also the patient's clinical case was discussed with the patient's nurse. This medical document was created using an electronic medical record system with computerized dictation system. Although this document has been carefully reviewed, there might still be some phonetic and typographical errors. These areas are purely typographical due to imperfections of the software programs, and do not reflect any compromise in the patient's medical care. Late signature. Date of Service: Mar 09, 2024 Billing Provider: HERMILA VIDALES MD Common Visit Codes: [id number] INP/OBS CARE(HIGH) Secondary Visit Codes: [id number] CARE PLAN 30 MINUTES (20 minutes) JHAJJ,DANUTA SOLARES Mar 09, 2024 12:12 HERMILA VIDALES MD Mar 11, 2024 05:25
[2024-03-09] MEDS: hydrALAZINE HCL 20 MG/ML VL IV PRN (13:47)
--- NOTE | 2024-03-09 13:57 | DVHSR ---
APPROVED REPORT EXAM: Two-dimensional and M-mode echocardiogram with Doppler and color Doppler. Blood Pressure: 126/48 mmHg INDICATION Chest Pain RISK FACTORS Height: 5' 2", Weight: 141 DIMENSIONS LVDd4.0 (3.8-5.7cm)LA (2D)3.5 (1.9-4.0cm)Aortic Root2.7 (2.0-3.7cm) LVDs2.6 (2.5-4.0cm)LA (MM) (1.9-4.0cm)Aortic Cusp Exc1.7 (1.5-2.0cm) EF (%) 64.6 (55-70%)Rt. Atrium3.6 (1.9-4.0cm)Asc. Aorta cm IVSd0.9 (0.7-1.1cm)RV (D) (1.8-2.4cm) PWd0.9 (0.7-1.1cm) Mitral Valve MitralMitral Stenosis E wave1.10m/sMV Mean GR.mmHg A wave1.00m/sMV Peak GR.mmHg E/A ratio1.12D MVAcm2 Aortic Valve Aortic ValveAortic Stenosis V10.80m/Amaya Mean GR.3mmHg V21.30m/Amaya Peak GR.7mmHg LVOT Diameter2.1 (1.8-2.4cm)Doppler AVA2.13cm2 Pulmonic Valve V20.70m/s Tricuspid Valve TR Velocity2.80m/s [id number] Conclusion Normal left ventricular size and dimension. Normal left ventricular systolic function estimated ejec tion fraction 55%. There is a grade1 diastolic dysfunction. Normal right ventricular size and dimension. Normal right ventricular systolic function. Slightly i ncreased right ventricular systolic pressure at 34 mm of mercury. Normal biatrial size and dimension. Normal aortic valve structure and function. Normal mitral valve structure and function. Normal tricuspid valve structure and function. The pulmonary valve is grossly normal. No pericardial effusion.
[2024-03-09] MEDS: LOSARTAN POTASSIUM 25 MG TAB PO ONE (16:02)
[2024-03-09] MEDS: ATORVASTATIN 20 MG TAB PO SCH (21:46)
[2024-03-09] MEDS: ENOXAPARIN SOD 40 MG/0.4 ML SYRINGE SC SCH (21:47)
[2024-03-09] MEDS: FAMOTIDINE (10MG/ML) 2ML VL IV SCH (22:00)
[2024-03-10] MEDS: cefTRIAXone 1GM/50ML D5W 50 ML IV SCH (00:23)
[2024-03-10 01:00] VITALS: BP 129/49; PULSE 65; RESP 18; TEMP 98.3; O2SAT 95
[2024-03-10 05:00] VITALS: BP 137/67; PULSE 76; RESP 18; TEMP 98.2; O2SAT 95
[2024-03-10 06:18] LABS: Potassium 3.7 mmol/L (3.5-5.1); Sodium 144 mmol/L (136-145)
[2024-03-10 06:19] LABS: Anion Gap 13 (5-15); Carbon Dioxide 20 mmol/L (20-31)
[2024-03-10 06:20] LABS: Calcium 9.7 mg/dL (8.7-10.4)
[2024-03-10 06:25] LABS: BUN/Creatinine Ratio 16.2 (10.0-20.0); Blood Urea Nitrogen 11 mg/dL (9-23)
[2024-03-10 06:26] LABS: Chloride 111 mmol/L (98-107); Glucose 122 mg/dL (74-106)
[2024-03-10 08:59] VITALS: BP 132/50; PULSE 58; RESP 16; TEMP 98.3; O2SAT 98
[2024-03-10] MEDS: LOSARTAN POTASSIUM 25 MG TAB PO SCH (09:11)
[2024-03-10] MEDS ORDERED: CIPR-173 PO (09:34)
[2024-03-10] MEDS ORDERED: ATOR20TA50 PO (09:34)
[2024-03-10 10:22] VITALS: BP 132/58
--- NOTE | 2024-03-10 16:22 | DVHDSRES ---
Discharge Summary Date of Admission Resident Creating Document: DANUTA TIRADO RESIDENT Mar 08, 2024 at 20:26 Date of Discharge: Mar 10, 2024 Admitting Diagnosis Dizziness and headache Wounds: no wounds Labs/Diagnostic Data: Laboratory Results Test 03/10/24 05:27 03/10/24 05:25 03/09/24 08:30 03/09/24 05:34 POC Glucose 126 mg/dl (70-106) Sodium Level 144 mmol/L (136-145) Potassium Level 3.7 mmol/L (3.5-5.1) Chloride Level 111 mmol/L (98-107) Carbon Dioxide Level 20 mmol/L (20-31) Anion Gap 13 (5-15) Blood Urea Nitrogen 11 mg/dL (9-23) Creatinine 0.68 mg/dL (0.550-1.02) Glomerular Filtration Rate Calc 96 mL/min (>90) BUN/Creatinine Ratio 16.2 (10.0-20.0) Serum Glucose 122 mg/dL (74-106) Calcium Level 9.7 mg/dL (8.7-10.4) Lactic Acid Level 1.8 mmol/L (0.4-2.0) White Blood Count 6.3 10^3/uL (4.4-10.8) Red Blood Count 4.15 10^6/uL (4.0-5.20) Hemoglobin 12.8 g/dL (12.2-16.2) Hematocrit 37.4 % (36.0-46.0) Mean Corpuscular Volume 90.1 fL (80.0-100.0) Mean Corpuscular Hemoglobin 30.9 pg (28.0-32.0) Mean Corpuscular Hemoglobin Concent 34.3 g/dL (32.0-36.0) Red Cell Distribution Width 14.7 % (11.8-14.3) Platelet Count 197 10^3/uL (140-450) Mean Platelet Volume 7.7 fL (6.9-10.8) Neutrophils (%) (Auto) 40.5 % (37.0-80.0) Lymphocytes (%) (Auto) 50.5 % (10.0-50.0) Monocytes (%) (Auto) 5.7 % (0.0-12.0) Eosinophils (%) (Auto) 2.7 % (0.0-7.0) Basophils (%) (Auto) 0.6 % (0.0-2.0) Neutrophils # (Auto) 2.6 10 ^3/uL (1.6-8.6) Lymphocytes # (Auto) 3.2 10 ^3/uL (0.4-5.4) Monocytes # (Auto) 0.4 10 ^3/uL (0-1.3) Eosinophils # (Auto) 0.2 10 ^3/uL (0-0.8) Basophils # (Auto) 0 10 ^3/uL (0-0.2) Nucleated Red Blood Cells 0.1 % Hemoglobin A1c 8.6 % A1C (<5.7) Total Bilirubin 0.3 mg/dL (0.2-1.0) Aspartate Amino Transferase (AST) 15 U/L (13-40) Alanine Aminotransferase (ALT) 22 U/L (7-40) Alkaline Phosphatase 50 U/L (46-116) B-Type Natriuretic Peptide 48.39 pg/mL (0-100) Total Protein 6.5 g/dL (5.7-8.2) Albumin 3.9 g/dL (3.2-4.8) Triglycerides Level 177 mg/dL (< 150) Cholesterol Level 151 mg/dL (< 200) LDL Cholesterol 87 mg/dL (< 100) HDL Cholesterol 37 mg/dL (40-59) Test 03/09/24 00:20 03/08/24 18:39 03/08/24 15:53 Urine Color Light-yellow (Yellow) Urine Clarity Clear (Clear) Urine pH 5.5 (5.0-9.0) Urine Specific [place] 1.019 (1.001-1.035) Urine Protein Negative (Negative) Urine Ketones Negative (Negative) Urine Blood Negative /uL (Negative) Urine Nitrite Negative (Negative) Urine Bilirubin Negative (Negative) Urine Urobilinogen Normal mg/dL (Negative) Urine Leukocyte Esterase 3+ /uL (Negative) Urine RBC 4 /hpf (0 - 4) Urine WBC 56 /hpf (0 - 5) Urine Squamous Epithelial Cells Few /hpf (<5) Urine Bacteria Few /hpf (None Seen) Urine Mucus Few (None Seen) Urine Glucose Normal mg/dL (Normal) Urine Opiates Screen Neg (NEGATIVE) Urine Fentanyl Screen Neg (NEGATIVE) Urine Barbiturates Screen Neg (NEGATIVE) Urine Phencyclidine Screen Neg (NEGATIVE) Urine Amphetamines Screen Neg (NEGATIVE) Urine Benzodiazepines Screen Neg (NEGATIVE) Urine Cocaine Screen Neg (NEGATIVE) Urine Cannabinoids Screen Neg (NEGATIVE) Troponin I High Sensitivity 4 ng/L (</=34) Thyroid Stimulating Hormone (TSH) 2.08 uIU/mL (0.55-4.78) D-Dimer, Quantitative 0.31 mg/L FEU (0.0-0.49) Other Laboratory Tests 03/10/24 05:25 03/09/24 05:34 Brief Hx & Hospital Course: HPI: Patient is 64 year old female with a past medical history of Hypertension and T2DM presented to the ED with the chief complaint of Dizziness for a few hours prior to admission. Patient was apparently doing well when a few hours before admission when she got up from the bed and felt dizzy and had left shoulder pain with numbness in the left hand . Patient denied chest pain, shortness of breath, palpitations, sweating, nausea, vomiting. no headache, no blurry vision, and no sensation of spinning when the patient had dizziness. patient denied fever and chills. Patient's blood pressure on admission was 180/45 mmHg with no signs of organ failure. Patient's records reviewed and she was discharged about 2 weeks ago after being admitted for a UTI. Past medical history: As per HPI Past social history cholecystectomy: Social history: Lives with family, denies smoking, alcohol, drug use Home medication: Telmisartan, insulin and metformin Hospital course Patient was admitted to the hospital and Head CT without contrast was done which did not show any acute intracranial abnormality. Left shoulder x-ray shows no grossly displaced fractures or dislocations. Patient was admitted initially to telemetry which overnight did not show any abnormal events. Telemetry was discontinued and the patient was shifted to [facility]. Urinalysis showed elevated leukocyte esterase, increased WBCs following which urine was sent for bacterial culture and patient was started on IV ceftriaxone 1 g daily for which 2 doses were given before discharge. Patient had elevated blood pressures in the hospital she was started on amlodipine 5 mg and losartan 25 mg once daily, this patient's blood pressure came down within normal limits. Orthostatic Vitals were negative for orthostatic hypotension. Patient did not report of chest pain, dizziness, palpitations, sensation of spinning, nausea, vomiting. Patient reported improvement in the suprapubic pain and dysuria after initiating on IV antibiotics and IV fluids. Patient was discharged in stable condition to home and advised to follow up in the DC clinic. Physical examination on the day of discharge: Gen - no pallor, no icterus, no cyanosis, no clubbing, no LAD, no edema . Skin - Patients skin is warm and dry. HEENT - normocephalic, atraumatic, moist mucous membranes. Neck - full ROM, no LAD, no JVD. Pulmonary - B/L vesicular breath sounds. no crackles , no wheezing, no stridor. cardiovascular - normal S1,S2 heard. no murmurs heard. peripheral pulses normal radial 2+, pedal 2+. capillary refill normal <2 secs. GI - soft abdomen with mild tenderness to palpation in the suprapubic region. no CVA tenderness. no hepatospleenomegaly. Neurological - Patient is A/O X 3 . Bilateral upper extremity strength 5/5, bilateral lower extremity strength 5/5, no facial droop, normal speech, no tremor, no sensory deficiets. Discharge plan: Patient is being discharged on ciprofloxacin 500 mg p.o. b.i.d and atorvastatin 40 mg HS was given. Home medications were continued. follow up in the discharge clinic in 1 week with urine bacteria culture report. Case discussed with Dr. Vidales Consults/Reason for consult no consultation Operations or Procedures Head CT- no acute intracranial abnormality Left shoulder x-ray - No grossly displaced fractures or dislocations are evident on the provided views. Glenohumeral articulation appears intact Chest X-ray- no cardiopulmonary abnormality Condition at Discharge: Stable Final Diagnosis/Problems List # Dizziness likely d/t ? hypoglycemia ?orthostatic hypotension ?bradycardia # Lactic acidosis, resolved # Uncontrolled hypertension # UTI likely acute cystitis # Hypokalemia # Hypertriglyceridemia # Uncontrolled T2DM Discharge Disposition: Home Discharge Instruct/Medications Diet: Consistent carbohydrate Activity: No Restrictions, As Tolerated Follow Up/Referral: Follow up in the d/c clinic in one week Follow up with the PCP Medications: ciprofloxacin 500 mg p.o. b.i.d and atorvastatin 40 mg HS; rest as per EMR Discharge Statement: "Patient was advised to return to the ER or call 911 if any headaches, dizziness, shortness of breath, chest pain, abdominal pain, bleeding, fevers, or worsening of medical condition. Patient was counseled about treatment plan, medications, possible side effects, patientverbalized understanding. All questions were answered to the best of my ability. This discharge took greater then 30 minutes in planning, reviewing documentation, counseling the patient, and discussing with other team members." ASSESSMENT ASSESSMENT Assessment # Dizziness likely d/t ? hypoglycemia ?orthostatic hypotension ?bradycardia # Lactic acidosis, resolved # Uncontrolled hypertension # UTI likely acute cystitis # Hypokalemia # Hypertriglyceridemia # Uncontrolled T2DM Addendum Addendum Addendum I was physically present for the charles portions of the service provided to patient by THE RESIDENT. I have reviewed the documentation, discussed the case with resident and agree with the resident's documentation except as noted. Also the patient's clinical case was discussed with the patient's nurse. This medical document was created using an electronic medical record system with computerized dictation system. Although this document has been carefully reviewed, there might still be some phonetic and typographical errors. These areas are purely typographical due to imperfections of the software programs, and do not reflect any compromise in the patient's medical care. Late signature. Date of Service: Mar 10, 2024 Billing Provider: HERMILA VIDALES MD Common Visit Codes: 56438-DYM/OBS DISCH DAY >30min DANUTA TIRADO RESIDENT Mar 10, 2024 16:22 HERMILA VIDALES MD Mar 11, 2024 05:28
[2024-03-10 16:47] LABS: Free T4 (Free Thyroxine) 1.05 ng/dL (0.89-1.76)
[2024-03-10 16:49] LABS: Free T3 3.03 pg/mL (2.3-4.2)
--- NOTE | 2024-03-11 10:43 | ECG ---
[facility] Test Date: 2024-03-08 Test Time: 15:42:10 Pat Name: ROSIE RINGepartment: er Room: 024[facility] Gender: F [employer] Worker: carleen : 1960 Requested By: CLARIBEL CHEUNG Order Number: [id number] Reading MD: Joe Hlobrook Measurements Intervals [place] Rate: 50 P: 44 OR: 141 QRS: 47 QRSD: 121 T: 45 QT: 469 QTc: 428 Interpretive Statements Sinus rhythm Nonspecific intraventricular conduction delay Borderline ST elevation, lateral leads Electronically Signed On 03-13-2024 8:51:28 PST by Joe Holbrook Please click the below link to view image of tracing.
== END 2024-03-10 11:35 | disposition home or self-care (01) | DRG 420 ==
LOC: ER 15:33 → TELE 20:26 → TELE-E-ADS 20:28 → EAST 03-09 09:42
PROVIDERS: ADMIT Internal Medicine; ATTEND Internal Medicine
DX: E11.649 Type 2 diabetes mellitus with hypoglycemia without coma (principal); E87.20 Acidosis, unspecified; I95.1 Orthostatic hypotension; R00.1 Bradycardia, unspecified; I10 Essential (primary) hypertension; E78.1 Pure hyperglyceridemia; N30.00 Acute cystitis without hematuria; E87.6 Hypokalemia; Z79.4 Long term (current) use of insulin; Z83.3 Family history of diabetes mellitus; I16.0 Hypertensive urgency; M25.512 Pain in left shoulder; Z90.49 Acquired absence of other specified parts of digestive tract; Z79.899 Other long term (current) drug therapy
CPT/HCPCS: 36415; 70450; 71045; 73030; 80048; 80053; 80061; 80307; 81001; 82962; 83036; 83605; 83880; 84439; 84443; 84481; 84484; 85025; 85379; 87040; 87081; 87086; 93005; 93306; 96361; 96365; 96372; 96375; 99291; G0378; J1815; J3490